=== PATIENT | male | born 1930 ===

== ENCOUNTER 2018-10-24 12:56 | Inpatient (IN) | payer OTHER ==
[2018-10-24 13:42] LABS: Absolute Lymphocytes (CBC) 1.1 K/uL (0.7-4.9); Basophils % 0.3 % (0-1.3); Hematocrit 25.6 % (39.6-49.0); Lymphocytes % 11.5 % (15.3-44.8); MPV 9.2 fL (7.6-11.3); RBC Red Blood Cell Count 2.69 M/uL (4.33-5.43)
[2018-10-24 14:03] LABS: Albumin 3.3 g/dL (3.4-5.0); Bilirubin Direct 0.2 mg/dL (0-0.2); Bilirubin Total 0.4 mg/dL (0.2-1.0); Potassium 3.7 mmol/L (3.5-5.1); Protein, Total 6.9 g/dL (6.4-8.2)
--- NOTE | 2018-10-24 14:39 | ER ---
Nurse's Notes [facility] Name: Tariq Yang Age: 88 yrs Sex: Male : 1930 Arrival Date: 10/24/2018 Time: 13:02 Bed 23 Private MD: Diagnosis: Hematuria Presentation: 10/24 13:03 Presenting complaint: EMS states: Pt c/o of blood in urine, bright red. Pt called Dr. marquis Conway and was advised to come to the ER. VS are stable. Transition of care: patient was not received from another setting of care. Onset of symptoms was October 24, 2018. Risk Assessment: Do you want to hurt yourself or someone else? Patient reports no desire to harm self or others. Initial Sepsis Screen: Does the patient meet any 2 criteria? No. Patient's initial sepsis screen is negative. Does the patient have a suspected source of infection? No. Patient's initial sepsis screen is negative. Care prior to arrival: None. 13:03 Method Of Arrival: EMS: [facility] 13:03 Acuity: ANNE-MARIE 3 ca1 Triage Assessment: 13:10 General: Appears in no apparent distress. comfortable, Behavior is calm, cooperative, ca1 appropriate for age. Pain: Complains of pain in groin Pain currently is 5 out of 10 on a pain scale. 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 - Social history:: Smoking status: Patient/guardian denies using tobacco, the patient reports quitting approximately 4 years ago, Patient/guardian denies using alcohol, street drugs, The patient lives with family. - Ebola Screening: : Patient negative for fever greater than or equal to 101.5 degrees Fahrenheit, and additional compatible Ebola Virus Disease symptoms Patient denies exposure to infectious person Patient denies travel to an Ebola-affected area in the 21 days before illness onset No symptoms or risks identified at this time. - Family history:: not pertinent. Screenin:14 Abuse screen: Denies threats or abuse. Denies injuries from another. Nutritional ca1 screening: No deficits noted. Tuberculosis screening: No symptoms or risk factors identified. Fall Risk IV access (20 points). Ambulatory Aid- Crutches/Cane/Walker (15 pts). Gait- Weak (10 pts.). Total Hatfield Fall Scale indicates High Risk Score (45 or more points). Fall prevention measures have been instituted. Side Rails Up X 2 Frequent Obs/Assessments Occuring Family Present and informed to notify staff if the need to leave the bedside As available patient and family educated on Fall Prevention Program and Strategies. Assessment: 13:14 General: Appears in no apparent distress. comfortable, Behavior is calm, cooperative, ca1 appropriate for age. Pain: Complains of pain in groin Pain currently is 5 out of 10 on a pain scale. Neuro: Level of Consciousness is awake, alert, obeys commands, Oriented to person, place, time, situation. Cardiovascular: Heart tones S1 S2 Capillary refill < 3 seconds Patient's skin is warm and dry. Edema is 2+ to left midcalf, left ankle, left foot, right midcalf, right ankle, right foot and right toes. Respiratory: Airway is patent Respiratory effort is even, unlabored, Respiratory pattern is regular, symmetrical, Breath sounds are clear bilaterally. GI: Abdomen is round non-distended, Bowel sounds present X 4 quads. Abd is soft and non tender X 4 quads. : Reports blood in urine, bright red in color and moderate in amount. EENT: No deficits noted. No signs and/or symptoms were reported regarding the EENT system. Derm: Skin is intact, is healthy with good turgor, Skin is pink, warm \T\ dry. Musculoskeletal: Circulation, motion, and sensation intact. Capillary refill < 3 seconds. 14:10 Reassessment: Patient appears in no apparent distress at this time. Patient and/or ca1 family updated on plan of care and expected duration. Pain level reassessed. Patient is alert, oriented x 3, equal unlabored respirations, skin warm/dry/pink. 15:00 Reassessment: Patient appears in no apparent distress at this time. Patient and/or ca1 family updated on plan of care and expected duration. Pain level reassessed. Patient is alert, oriented x 3, equal unlabored respirations, skin warm/dry/pink. 16:08 Reassessment: Patient appears in no apparent distress at this time. Patient and/or ca1 family updated on plan of care and expected duration. Pain level reassessed. Patient is alert, oriented x 3, equal unlabored respirations, skin warm/dry/pink. 17:27 Reassessment: Patient appears in no apparent distress at this time. Patient and/or ca1 family updated on plan of care and expected duration. Pain level reassessed. Patient is alert, oriented x 3, equal unlabored respirations, skin warm/dry/pink. Attempted to insert a 3-way cath, unsuccessful. Verified by JUANA Peter. Swain Cath inserted. Irrigated until clear. Pt tolerated well. 17:39 Reassessment: Called for report. Nurse will call back. ca1 18:16 Reassessment: Patient appears in no apparent distress at this time. Patient is alert, ca1 oriented x 3, equal unlabored respirations, skin warm/dry/pink. 18:26 Reassessment: Dr. Jacob at bedside. Notified unsuccessful insertion of 3-way cath. ca1 Notified Dr. Jacob that pt's bladder was irrigated until clear and clots evacuated. Vital Signs: 13:10 BP 136 / 72; Pulse 92; Resp 16 S; Temp 98.9(O); Pulse Ox 100% on R/A; Weight 80.29 kg ca1 (R); Height 6 ft. 1 in. (185.42 cm) (R); Pain 5/10; 14:12 BP 129 / 58; Pulse 87; Resp 16 S; Pulse Ox 100% on R/A; ca1 15:00 BP 132 / 85; Pulse 85; Resp 23 S; Pulse Ox 96% on R/A; ca1 16:00 BP 121 / 57; Pulse 92; Resp 17 S; Pulse Ox 97% on R/A; ca1 17:27 BP 123 / 59; Pulse 63; Resp 15; Temp 98.5(O); Pulse Ox 100% on R/A; ca1 18:16 BP 131 / 63; Pulse 97; Resp 14 S; Pulse Ox 96% on R/A; ca1 13:10 Body Mass Index 23.35 (80.29 kg, 185.42 cm) ca1 ED Course: 13:02 Patient arrived in ED. ca1 13:05 Triage completed. ca1 13:07 Jorge Tamayo PA is PHCP. [email or web address] 13:07 Pravin Munson MD is Attending Physician. jm 13:07 Kevin Nance MD is Attending Physician. ma2 13:08 Tamela Ryder RN is Primary Nurse. ca1 13:10 Arm band placed on right wrist. ca1 13:14 Patient has correct armband on for positive identification. Placed in gown. Bed in low ca1 position. Call light in reach. Side rails up X2. wholesale loan processor on. Pulse ox on. NIBP on. Warm blanket given. 13:14 No provider procedures requiring assistance completed. ca1 13:26 Initial lab(s) drawn, by pr, sent to lab. First set of blood cultures drawn by me. lt1 13:28 Inserted saline lock: 20 gauge in right antecubital area, using aseptic technique. lt1 13:49 EKG done, by theater technician. reviewed by Kevin Nance MD. tc 13:58 Second set of blood cultures drawn by me. lt1 13:59 Blood Culture Adult (2) Sent. lt1 14:36 Eddie Conway MD is Hospitalizing Provider. ma2 14:36 Merrill Jacob MD is Hospitalizing Provider. ma2 17:27 Swain cath inserted, using sterile technique, 18 Fr., by pr, balloon inflated, to ca1 gravity drainage, clamped. returned bloody urine. Patient tolerated well. Irrigated with NS. Clots drained. 17:38 Patient admitted, IV remains in place. ca1 Administered Medications: 16:30 Drug: [place] 10 mg-325 mg 1 tabs {Note: RASS - 0.} Route: PO; aj1 17:36 Follow up: Response: No adverse reaction; Pain is decreased; RASS: Alert and Calm (0) ca1 Outcome: 14:37 Decision to Hospitalize by Provider. ma2 18:16 Admitted to Med/surg accompanied by nurse, accompanied by tech, via stretcher, room ca1 231, Report called to MARQUIS Schrader 18:16 Condition: stable 18:16 Instructed on the need for admit. 18:31 Patient left the ED. ca1 Signatures: Vita Doe RN RN aj1 Jorge Tamayo PA PA jmm Callis, Tiffany, social studies teacher EKG Ttc Kevin Nance MD MD ma2 Acob, Cheryl, RN RN ca1 Nuno, Triny lt1 Corrections: (The following items were deleted from the chart) 13:11 13:10 Pain: Denies pain. ca1 ca1 16:08 15:00 Reassessment: Patient appears in no apparent distress at this time. Patient ca1 and/or family updated on plan of care and expected duration. Pain level reassessed. Patient is alert, oriented x 3, equal unlabored respirations, skin warm/dry/pink. 16 ca1 17:29 17:27 Swain cath inserted, using sterile technique, 18 Fr., by pr, balloon inflated, to ca1 gravity drainage, clamped. returned bloody urine. Patient tolerated well. Irrigated with NS. Clots drained. ca1 18:31 17:27 Reassessment: Patient appears in no apparent distress at this time. Patient ca1 and/or family updated on plan of care and expected duration. Pain level reassessed. Patient is alert, oriented x 3, equal unlabored respirations, skin warm/dry/pink. Swain Cath inserted. Irrigated until clear. Pt tolerated well. ca1
--- NOTE | 2018-10-24 14:40 | EDPHYS ---
Physician Documentation [facility] Name: Tariq Yang Age: 88 yrs Sex: Male : 1930 Arrival Date: 10/24/2018 Time: 13:02 Bed 23 Private MD: ED Physician Kevin Nance HPI: 10/24 14:32 This 88 yrs old Unknown Male presents to ER via EMS with complaints of hematuria. ma2 14:32 The patient presents with hematuria. Onset: The symptoms/episode began/occurred ma2 gradually, 1 day(s) ago. Associated signs and symptoms: Pertinent positives: hematuria, Pertinent negatives: nausea and vomiting, blood in stools, constipation, dysuria, shortness of breath, testicular pain, vomiting blood. Severity of pain: At its worst the pain was moderate in the emergency department the pain is unchanged. The patient has experienced similar episodes in the past. sent by EMS, as recommended by dr. conway, patient has hx of prostate ca and here with active hematuria . 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 - Social history:: Smoking status: Patient/guardian denies using tobacco, the patient reports quitting approximately 4 years ago, Patient/guardian denies using alcohol, street drugs, The patient lives with family. - Ebola Screening: : Patient negative for fever greater than or equal to 101.5 degrees Fahrenheit, and additional compatible Ebola Virus Disease symptoms Patient denies exposure to infectious person Patient denies travel to an Ebola-affected area in the 21 days before illness onset No symptoms or risks identified at this time. - Family history:: not pertinent. ROS: 14:32 Constitutional: Negative for fever, chills, and weight loss. ma2 14:32 All other systems are negative. Exam: 14:32 Constitutional: This is a well developed, well nourished patient who is awake, alert, ma2 and in no acute distress. Chest/axilla: Normal chest wall appearance and motion. Nontender with no deformity. No lesions are appreciated. Cardiovascular: Regular rate and rhythm with a normal S1 and S2. No gallops, murmurs, or rubs. Normal PMI, no JVD. No pulse deficits. Respiratory: Lungs have equal breath sounds bilaterally, clear to auscultation and percussion. No rales, rhonchi or wheezes noted. No increased work of breathing, no retractions or nasal flaring. Abdomen/GI: Soft, non-tender, with normal bowel sounds. No distension or tympany. No guarding or rebound. No evidence of tenderness throughout. Skin: Warm, dry with normal turgor. Normal color with no rashes, no lesions, and no evidence of cellulitis. 14:32 Male : Normal genitalia with no discharge or lesions. MS/ Extremity: Pulses equal, ma2 no cyanosis. Neurovascular intact. Full, normal range of motion. Vital Signs: 13:10 BP 136 / 72; Pulse 92; Resp 16 S; Temp 98.9(O); Pulse Ox 100% on R/A; Weight 80.29 kg ca1 (R); Height 6 ft. 1 in. (185.42 cm) (R); Pain 5/10; 14:12 BP 129 / 58; Pulse 87; Resp 16 S; Pulse Ox 100% on R/A; ca1 15:00 BP 132 / 85; Pulse 85; Resp 23 S; Pulse Ox 96% on R/A; ca1 16:00 BP 121 / 57; Pulse 92; Resp 17 S; Pulse Ox 97% on R/A; ca1 17:27 BP 123 / 59; Pulse 63; Resp 15; Temp 98.5(O); Pulse Ox 100% on R/A; ca1 18:16 BP 131 / 63; Pulse 97; Resp 14 S; Pulse Ox 96% on R/A; ca1 13:10 Body Mass Index 23.35 (80.29 kg, 185.42 cm) ca1 MDM: 13:07 Patient medically screened. ma2 14:32 Differential diagnosis: Prostatitis, Ureterolithiasis, urinary tract infection. Data ma2 reviewed: vital signs, nurses notes, old medical records, radiologic studies. Counseling: I had a detailed discussion with the patient and/or guardian regarding: the historical points, exam findings, and any diagnostic results supporting the discharge/admit diagnosis, the presence of at least one elevated blood pressure reading (>120/80) during this emergency department visit, the need for outpatient follow up. Response to treatment: the patient's symptoms have mildly improved after treatment. ED course: called dr. conway via kiln head house operator, no answers, i called and discussed with dr. Jacob, as per EMS report dr. Conway recommends admission, vs wnl, hb is 9 and patient has active hematuria . 10/24 13:08 Order name: Basic Metabolic Panel; Complete Time: 14:29 pr2 10/24 13:08 Order name: CBC with Diff pr2 10/24 13:08 Order name: Creatinine for Radiology; Complete Time: 14:29 pr2 10/24 13:08 Order name: Hepatic Function; Complete Time: 14:29 pr2 10/24 13:08 Order name: Lipase; Complete Time: 14:29 pr2 10/24 13:24 Order name: Blood Culture Adult (2) ph 10/24 13:08 Order name: IV Saline Lock; Complete Time: 13:29 pr2 10/24 13:08 Order name: Labs collected and sent; Complete Time: 13:29 pr2 10/24 13:48 Order name: CBC with Automated Diff EDOK 10/24 15:54 Order name: Urinalysis W/Microscopic [facility]OK 10/24 16:29 Order name: Urine Culture [facility] 10/24 17:47 Order name: Diet Heart Healthy; Complete Time: 17:48 ca1 10/24 15:59 Order name: Swain-Hematuria: irregation with ns; Complete Time: 17:35 ma2 Administered Medications: 16:30 Drug: [place] 10 mg-325 mg 1 tabs {Note: RASS - 0.} Route: PO; aj1 17:36 Follow up: Response: No adverse reaction; Pain is decreased; RASS: Alert and Calm (0) ca1 Disposition: 10/24/18 14:37 Hospitalization ordered by Merrill Jacob for Inpatient Admission. Preliminary diagnosis is Hematuria. - Bed requested for Telemetry/MedSurg (Inpatient). - Status is Inpatient Admission. ca1 - Condition is Stable. - Problem is new. - Symptoms are unchanged. UTI on Admission? No Signatures: Dispatcher [employer] EDOK Tram García Angela, RN RN aj1 Kevin Nance MD MD ma2 Acob, Tamela, RN RN ca1 Corrections: (The following items were deleted from the chart) 15:10 13:08 Urine Dipstick-Ancillary ordered. ma2 ca1 15:57 15:05 UA MICROSCOPIC+U.LAB.BRZ ordered. EDMS EDMS 16:16 14:37 Hospitalization Ordered by Merrill Jacob MD for Inpatient Admission. Preliminary bd diagnosis is Hematuria. Bed requested for Telemetry/MedSurg (Inpatient). Status is Inpatient Admission. Condition is Stable. Problem is new. Symptoms are unchanged. UTI on Admission? No. ma2 18:31 16:16 10/24/2018 14:37 Hospitalization Ordered by Merrill Jacob MD for Inpatient ca1 Admission. Preliminary diagnosis is Hematuria. Bed requested for Telemetry/MedSurg (Inpatient). Status is Inpatient Admission. Condition is Stable. Problem is new. Symptoms are unchanged. UTI on Admission? No. bd
[2018-10-24 15:55] LABS: Urine Appearance TURBID; Urine Bilirubin NEGATIVE (NEG); Urine Blood 3+ (NEG); Urine Color RED; Urine Glucose NEGATIVE (NEG); Urine Protein 3+ (NEG); Urine Specific Gravity >=1.030 (1.005-1.030)
[2018-10-24 16:23] LABS: Urine Bacteria LOADED /HPF (NONE SEEN); Urine Culture Reflex Order REFLEXED; Urine RBC TNTC /HPF (NONE SEEN)
[2018-10-24] MEDS ORDERED: HYDROCODONE/APAP 10/325 TAB ONE (16:26)
--- NOTE | 2018-10-24 18:31 | EKG ---
Test Date: 2018-10-24 Test Time: 13:37:49 Inventory Control/Shipping Receiving: HOWARD MEASUREMENT RESULTS: Intervals: Rate: 93 IA: QRSD: 130 QT: 422 QTc: 524 [place]: P: IA: QRS: -64 T: 73 INTERPRETIVE STATEMENTS: Sinus rhythm with AV dissociation and Wide QRS rhythm with frequent premature ventricular complexes Right bundle branch block Left anterior fascicular block Bifascicular block Abnormal ECG No previous ECG available for comparison Electronically Signed On 10-24-18 18:29:21 CDT by Kenny Woodall
--- NOTE | 2018-10-24 18:44 | P.HP ---
Certification for Inpatient Patient admitted to: Inpatient Practitioner: I am a practitioner with admitting privileges, knowledge of patient current condition, hospital course, and medical plan of care. Services: Services provided to patient in accordance with Admission requirements found in Title 42 Section 412.3 of the Code of Federal Regulations Patient History Date of Service: 10/24/18 Reason for admission: Hematuria History of Present Illness: This is a 88-year-old male with history of neuropathy and prostate cancer status post radiation therapy 1 year ago admitted for hematuria. Per patient, he has been experiencing hematuria this past 1 week and has been progressively worsening. He has been seeing Dr. Conway and called his office when he started experiencing this. He was told to come to the emergency room to get further management and treatment. Patient denies any chest pain, shortness of breath, abdominal pain, vision changes, headache, lightheadedness, syncope or other GI complaints. In the ER, patient was hemodynamically stable with blood pressure 136/72, heart rate of 92. His hemoglobin was low at 9.3, sodium was elevated at 146. Otherwise his labs were unremarkable. In the ER, an attempt was made to put a [address] Swain but they were unsuccessful. Therefore the regular Swain catheter was placed and bladder irrigation was done in the ER until no clots were noted. At the time of my exam, he was alert oriented x3, in no acute distress, hemodynamically stable. Allergies Penicillins Allergy (Verified 10/24/18 17:33) Hives/Rash Home medications list reviewed: Yes - Past Medical/Surgical History -: Prostate cancer, radiation therapy Review of Systems 10-point ROS is otherwise unremarkable Physical Examination - Physical Exam General: Alert, In no apparent distress, Cachectic, Other (Elderly) HEENT: Atraumatic, PERRLA, Mucous membr. moist/pink, EOMI, Sclerae nonicteric Neck: Supple, 2+ carotid pulse no bruit, No LAD, Without JVD or thyroid abnormality Respiratory: Clear to auscultation bilaterally, Normal air movement Cardiovascular: Regular rate/rhythm, Normal S1 S2 Gastrointestinal: Normal bowel sounds, No tenderness Musculoskeletal: No tenderness Integumentary: No rashes Neurological: Normal gait, Normal speech, Normal strength at 5/5 x4 extr, Normal tone, Normal affect Lymphatics: No axilla or inguinal lymphadenopathy - Studies Laboratory Data (last 24 hrs) 10/24/18 13:26: Creatinine 1.67 H 10/24/18 13:26: WBC 9.3, Hgb 8.9 L, Hct 25.6 L, Plt Count 183 10/24/18 13:26: Sodium 146 H, Potassium 3.7, BUN 30 H, Creatinine 1.64 H, Glucose 99, Total Bilirubin 0.4, AST 13 L, ALT 11 L, Alkaline Phosphatase 86, Lipase 63 L Assessment and Plan - Problems (Diagnosis) (1) Hematuria Current Visit: Yes Status: Acute Qualifiers: Hematuria type: unspecified type Qualified Code(s): R31.9 - Hematuria, unspecified (2) History of prostate cancer Current Visit: Yes Status: Chronic (3) History of radiation therapy Current Visit: Yes Status: Chronic (4) Neuropathy Current Visit: Yes Status: Acute - Plan Admit to floor with tele -Dr. Conway, urology consulted. Case discussed with Dr. Conway. Awaiting further recommendations -continue bladder irrigation as needed -monitor H&H via labs -monitor vital sign DVT prophylaxis: None GI prophylaxis: None Diet: Regular, NPO past med Disposition: Admit to floor with tele, pending symptomatic improvement and urology evaluation. - Advance Directives Does patient have a Living Will: No Does patient have a Durable POA for Healthcare: No Time Spent Managing Pts Care (In Minutes): 55
[2018-10-24 19:42] VITALS: BMI 23.3
[2018-10-24 20:14] LABS: Absolute Lymphocytes (CBC) 1.3 K/uL (0.7-4.9); Basophils % 0.6 % (0-1.3); Hematocrit 24.8 % (39.6-49.0); Lymphocytes % 14.7 % (15.3-44.8); MPV 9.1 fL (7.6-11.3); RBC Red Blood Cell Count 2.56 M/uL (4.33-5.43)
[2018-10-24] MEDS: NA CHLORIDE 0.9% 1,000 ML IV SCH (20:50)
[2018-10-24] MEDS: HYDROCODONE/APAP 10/325 TAB PO PRN (20:50)
[2018-10-25] MEDS: HYDROCODONE/APAP 10/325 TAB PO PRN (04:20)
[2018-10-25] MEDS: NA CHLORIDE 0.9% 1,000 ML IV SCH ×3 (05:34→20:54)
[2018-10-25 05:43] LABS: Absolute Lymphocytes (CBC) 1.9 K/uL (0.7-4.9); Basophils % 0.4 % (0-1.3); Hematocrit 22.8 % (39.6-49.0); Lymphocytes % 21.1 % (15.3-44.8); RBC Red Blood Cell Count 2.41 M/uL (4.33-5.43)
[2018-10-25 06:13] LABS: Bilirubin Total 0.6 mg/dL (0.2-1.0); Phosphorus 2.2 mg/dL (2.5-4.9); Potassium 3.9 mmol/L (3.5-5.1); Protein, Total 5.9 g/dL (6.4-8.2)
[2018-10-25 06:14] LABS: Magnesium 1.4 mg/dL (1.8-2.4)
[2018-10-25] MEDS ORDERED: Magnesium Sulfate 2gm IVPB 2 G/50 ML BAG IV ONE (08:00)
[2018-10-25] MEDS ORDERED: POTASSIUM PHOS IN 0.9 % NACL 15 MMOL/250 ML BAG IV ONE (09:00)
[2018-10-25] MEDS ORDERED: NA CHLORIDE 0.9% 500 ML ONE (11:09)
[2018-10-25] MEDS ORDERED: MORPHINE 2 MG/ML SYR IV ONE (11:33)
[2018-10-25] MEDS ORDERED: MORPHINE 2 MG/ML SYR ONE (11:40)
[2018-10-25] MEDS ORDERED: PROPOFOL 200 MG/20 ML VIAL IV ONE (13:11)
[2018-10-25] MEDS ORDERED: LIDOCAINE 1% MPF 5 ML VIAL ONE (13:11)
[2018-10-25] MEDS ORDERED: FENTANYL CITR 100 MCG/2 ML ONE (13:11)
[2018-10-25] MEDS ORDERED: GENTAMICIN 100 MG/100 ML BAG 100 ML IV ONE (13:22)
[2018-10-25] MEDS ORDERED: Ringers Lactate 1,000 ML IV ONE (13:27)
--- NOTE | 2018-10-25 13:32 | P.PN ---
Subjective Date of Service: 10/25/18 Chief Complaint: Hematuria Patient seen and examined at bedside. No family at bedside. Chart reviewed and case discussed with nursing staff. Continues to have hematuria Denies any chest pain, shortness of breath, headache, dizziness, vision changes or speech changes. Review of Systems 10-point ROS is otherwise unremarkable Physical Examination - Vital Signs Temperature: 97.3 F Blood Pressure: 137/70 Pulse: 109 Respirations: 18 Pulse Ox (%): 94 - Physical Exam General: Alert, In no apparent distress, Oriented x3 HEENT: Atraumatic, PERRLA, EOMI Neck: Supple, JVD not distended Respiratory: Clear to auscultation bilaterally, Normal air movement Cardiovascular: Regular rate/rhythm, Normal S1 S2 Gastrointestinal: Normal bowel sounds, No tenderness Musculoskeletal: No tenderness Integumentary: No rashes Neurological: Normal speech, Normal tone, Normal affect Lymphatics: No axilla or inguinal lymphadenopathy - Studies Laboratory Data (last 24 hrs) 10/24/18 13:26: Creatinine 1.67 H 10/24/18 13:26: WBC 9.3, Hgb 8.9 L, Hct 25.6 L, Plt Count 183 10/24/18 13:26: Sodium 146 H, Potassium 3.7, BUN 30 H, Creatinine 1.64 H, Glucose 99, Total Bilirubin 0.4, AST 13 L, ALT 11 L, Alkaline Phosphatase 86, Lipase 63 L Assessment And Plan - Current Problems (Diagnosis) (1) Hematuria Current Visit: Yes Status: Acute Qualifiers: Hematuria type: unspecified type Qualified Code(s): R31.9 - Hematuria, unspecified (2) History of prostate cancer Current Visit: Yes Status: Chronic (3) History of radiation therapy Current Visit: Yes Status: Chronic (4) Neuropathy Current Visit: Yes Status: Acute - Plan -Dr. Conway, urology consulted. Case discussed with Dr. Conway. Recommendations appreciated. Patient pending cystoscopy, clot evacuation and through Swain catheter placement procedure today. -continue bladder irrigation as needed -monitor H&H via labs - Transfuse 1 unit PRBC at this time. -monitor vital sign DVT prophylaxis: None GI prophylaxis: None Diet: Regular, NPO Disposition: pending symptomatic improvement and urology recommendations.
[2018-10-25] MEDS ORDERED: NS 0.9% VIAL 10 ML ONE (14:19)
[2018-10-25] MEDS ORDERED: Phenylephrine HCl 10 MG/ML 1 ML VIAL ONE (14:19)
[2018-10-25] MEDS: FENTANYL CITR 100 MCG/2 ML ONE ×2 (15:00→15:15)
[2018-10-25] MEDS: CEFTRIAXONE/SWI 1gm 1 GM/10 ML SYR IVP SCH (16:07)
--- NOTE | 2018-10-25 16:50 | CON ---
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 Due to his radiation, he has had complete biopsies before that wer e all negative. He has had hyperbarics done before. However suddenly, he was at home and started bl eeding and called my office. He was sent to the emergency room. He was found to be anemic and was a dmitted overnight. They tried to place a 3-way Swain catheter, but had some difficulty, so they plac ed a regular catheter. This drained pretty grossly blood, tried to irrigate home. There was some re sistance and not able to aspirate any fluid from the catheter. It may be in the wrong position. So, he is going to need to go to OR for cysto, clot evacuation, fulguration, and Swain placement. He drummond s been n.p.o. overnight. Allergies: PENICILLIN, CAUSES HIVES AND RASH. Home Medications: Reviewed. Past Medical History: Prostate cancer, radiation and radiation cystitis. Review of Systems: Ten-point review of systems is otherwise unremarkable. Physical Examination: Vital Signs: Patient is afebrile, stable. General: Alert, slightly cachectic, older gentleman. HEENT: Atraumatic and normocephalic. Neck: Supple. Respiratory: Clear. Cardiovascular: S1, S2. Abdomen: Soft, nontender. Genitourinary: Both testicles are descended. Phallus circumcised. Swain catheter in place. Laboratory Data: Labs reviewed. Creatinine 1.67. CBC; white count 9.3, H and H 8.9 and 25, platele t count 183. His hemoglobin came down to 7 today. He is getting 1 unit transfused now. Electrolyte s reviewed with creatinine 1.6. Diagnoses: 1.Gross hematuria, difficult Swain catheter placement. 2.History of prostate cancer. 3.History of radiation and radiation cystitis. 4.History of neuropathy. Plan: Plan is to take patient to operating room for cysto, clot evacuation, fulguration, and Swain p lacement. He will receive 1 unit of blood. Patient was given all general information, alternatives, and risks and wishes to proceed. CHEN/BRIAN Voice ID: [id number] Report ID: [id number]
[2018-10-25] MEDS ORDERED: HYDROCODONE/APAP 10/325 TAB PO SCH (17:00)
[2018-10-25 17:40] LABS: Hematocrit 24.4 % (39.6-49.0)
[2018-10-25] MEDS: HYDROCODONE/APAP 10/325 TAB PO SCH ×2 (18:15→23:20)
[2018-10-25] MEDS: LIOTHYRONINE SOD 5 MCG TAB PO SCH (20:56)
[2018-10-25] MEDS: GABAPENTIN 300 MG CAP PO SCH (20:56)
[2018-10-26] MEDS: NA CHLORIDE 0.9% 1,000 ML IV SCH ×3 (00:49→17:45)
[2018-10-26] MEDS ORDERED: NACL 0.9% IRR SOLN 4,000 ML IRR ONE ×2 (00:55→04:57)
[2018-10-26] MEDS: HYDROCODONE/APAP 10/325 TAB PO SCH ×3 (05:10→17:44)
[2018-10-26] MEDS: LEVOTHYROXINE SOD 0.112 MG TAB PO SCH (05:10)
[2018-10-26 05:53] LABS: Absolute Lymphocytes (CBC) 1.9 K/uL (0.7-4.9); Basophils % 0.3 % (0-1.3); Hematocrit 22.9 % (39.6-49.0); MPV 9.5 fL (7.6-11.3); RBC Red Blood Cell Count 2.41 M/uL (4.33-5.43)
[2018-10-26 06:18] LABS: Phosphorus 3.2 mg/dL (2.5-4.9); Potassium 4.7 mmol/L (3.5-5.1)
[2018-10-26] MEDS ORDERED: [UNRECOGNIZED DRUG - OTHER] PO SCH (09:00)
[2018-10-26] MEDS: CEFTRIAXONE/SWI 1gm 1 GM/10 ML SYR IVP SCH (09:26)
[2018-10-26] MEDS: LIOTHYRONINE SOD 5 MCG TAB PO SCH ×2 (09:27→20:29)
[2018-10-26] MEDS: METOPROLOL XL 25 MG TAB PO SCH (09:27)
[2018-10-26] MEDS: FUROSEMIDE 40 MG TABLET PO SCH (09:28)
[2018-10-26] MEDS: LISINOPRIL 5 MG TAB PO SCH (09:28)
[2018-10-26] MEDS: GABAPENTIN 300 MG CAP PO SCH ×3 (09:28→20:29)
[2018-10-26] MEDS: MAXZIDE (HCTZ 25/TRIAMTERENE 37.5MG) TAB PO SCH (09:28)
[2018-10-26] MEDS ORDERED: NACL 0.9% IRR SOLN 2,000 ML IRR SCH (12:00)
[2018-10-26 12:54] LABS: Absolute Lymphocytes (CBC) 1.6 K/uL (0.7-4.9); Basophils % 0.6 % (0-1.3); Hematocrit 22.5 % (39.6-49.0); Lymphocytes % 14.2 % (15.3-44.8); RBC Red Blood Cell Count 2.39 M/uL (4.33-5.43)
--- NOTE | 2018-10-26 15:11 | P.PN ---
Subjective Date of Service: 10/26/18 Chief Complaint: Hematuria Subjective: Improving Patient seen and examined at bedside. No family at bedside. Chart reviewed and case discussed with nursing staff. Continues to have hematuria bu tno complaints this am. Denies any chest pain, shortness of breath, headache, dizziness, vision changes or speech changes. Review of Systems 10-point ROS is otherwise unremarkable Physical Examination - Vital Signs Temperature: 98.1 F Blood Pressure: 126/61 Pulse: 93 Respirations: 18 Pulse Ox (%): 96 - Physical Exam General: Alert, In no apparent distress HEENT: Atraumatic, PERRLA, EOMI Neck: Supple, JVD not distended Respiratory: Clear to auscultation bilaterally, Normal air movement Cardiovascular: Regular rate/rhythm, Normal S1 S2 Gastrointestinal: Normal bowel sounds, No tenderness Musculoskeletal: No tenderness Integumentary: No rashes Neurological: Normal speech, Normal tone, Normal affect Lymphatics: No axilla or inguinal lymphadenopathy Assessment And Plan - Current Problems (Diagnosis) (1) Hematuria Current Visit: Yes Status: Acute Qualifiers: Hematuria type: unspecified type Qualified Code(s): R31.9 - Hematuria, unspecified (2) History of prostate cancer Current Visit: Yes Status: Chronic (3) History of radiation therapy Current Visit: Yes Status: Chronic (4) Neuropathy Current Visit: Yes Status: Acute - Plan -Dr. Conway, urology consulted. Case discussed with Dr. Conway. Recommendations appreciated. Patient s/p cystoscopy, clot evacuation and 3-way Swain catheter placement procedure today. -continue bladder irrigation as needed -monitor H&H via labs - s/p 1 unit PRCs so far. H&H slowly decreasing. latest Hgb 7.6 (form 7.8). Will recheck at 7 pm. If less than 7, will transfuse another unit PRBCs. -monitor vital signs DVT prophylaxis: None GI prophylaxis: None Diet: Regular Disposition: pending symptomatic improvement and urology recommendations.
--- NOTE | 2018-10-26 18:03 | PN ---
Subjective: Mr. Yang is doing well today. Urine is clearing nicely. We are going to go ahead and t urn off the CBI and see how it looks after half hour to an hour. He may need his catheter removed. His urine culture was negative. His path specimen is still pending, probably pending until next week or so. We will try to get him home for the weekend. CHEN/BRIAN Voice ID: [id number] Report ID: [id number]
[2018-10-26 20:45] LABS: Hematocrit 21.8 % (39.6-49.0)
[2018-10-27] MEDS: HYDROCODONE/APAP 10/325 TAB PO SCH ×6 (00:35→23:24)
[2018-10-27] MEDS: NA CHLORIDE 0.9% 1,000 ML IV SCH ×3 (05:03→16:58)
[2018-10-27] MEDS: LEVOTHYROXINE SOD 0.112 MG TAB PO SCH (05:23)
[2018-10-27 07:37] LABS: Absolute Lymphocytes (CBC) 1.4 K/uL (0.7-4.9); Basophils % 0.6 % (0-1.3); Hematocrit 20.8 % (39.6-49.0); Lymphocytes % 15.7 % (15.3-44.8); MPV 9.1 fL (7.6-11.3); RBC Red Blood Cell Count 2.21 M/uL (4.33-5.43)
--- NOTE | 2018-10-27 07:37 | EKG ---
Test Date: 2018-10-27 Test Time: 02:26:24 Pipe Organ Installer: RT-O MEASUREMENT RESULTS: Intervals: Rate: 73 [place]: QRSD: 98 QT: 446 QTc: 491 [place]: P: [place]: QRS: -57 T: -10 INTERPRETIVE STATEMENTS: Accelerated Junctional rhythm with frequent and consecutive premature ventricular complexes and fusion complexes Left anterior fascicular block Nonspecific ST abnormality Prolonged QT Abnormal ECG Compared to ECG 10/24/2018 13:37:49 Accelerated junctional rhythm now present Fusion complex(es) now present ST (T wave) deviation now present Prolonged QT interval now present Sinus rhythm no longer present Uncertain supraventricular rhythm no longer present AV dissociation no longer present Right bundle-branch block no longer present Bifascicular block no longer present Electronically Signed On 10-27-18 07:36:24 CDT by Kenny Woodall
[2018-10-27 07:56] LABS: Albumin 2.3 g/dL (3.4-5.0); Bilirubin Total 0.3 mg/dL (0.2-1.0); Magnesium 1.7 mg/dL (1.8-2.4); Potassium 4.2 mmol/L (3.5-5.1); Protein, Total 5.1 g/dL (6.4-8.2)
[2018-10-27] MEDS: CEFTRIAXONE/SWI 1gm 1 GM/10 ML SYR IVP SCH (09:51)
[2018-10-27] MEDS: METOPROLOL XL 25 MG TAB PO SCH (09:52)
[2018-10-27] MEDS: MAXZIDE (HCTZ 25/TRIAMTERENE 37.5MG) TAB PO SCH (09:52)
[2018-10-27] MEDS: LIOTHYRONINE SOD 5 MCG TAB PO SCH ×2 (09:52→21:16)
[2018-10-27] MEDS: GABAPENTIN 300 MG CAP PO SCH ×3 (09:52→21:16)
[2018-10-27] MEDS: LISINOPRIL 5 MG TAB PO SCH (09:53)
[2018-10-27] MEDS: FUROSEMIDE 40 MG TABLET PO SCH (09:53)
--- NOTE | 2018-10-27 10:10 | RAD REPORT ---
EXAM DESCRIPTION: CT - Abdomen Pelvis W Contrast - 10/27/2018 9:18 am CLINICAL HISTORY: Abdominal pain with nausea. COMPARISON: none. TECHNIQUE: Computed axial tomography of the abdomen pelvis was obtained. 100 cc Isovue-300 was admin istered intravenously. Oral contrast was not requested which limits evaluation of bowel. All CT scans are performed using dose optimization technique as appropriate and may include automated exposure control or mA/KV adjustment according to patient size. FINDINGS: Small pleural effusions The liver, spleen, pancreas and adrenals appear unremarkable. Right kidney unremarkable. Mild left hydronephrosis and mild dilatation of the left ureter to the sandro dder. Left renal cortical thinning A Swain catheter is present within the bladder. An ill-defined mass is present within the anterior le ft aspect of the bladder. Soft tissue measuring approximately 4 centimeter extends anteriorly and to the left of the bladder containing several air bubbles. Small amount of surrounding fluid is seen. Th e mass abuts the proximal sigmoid colon. The mass likely obstructs the left UVJ resulting in mild lef t hydronephrosis 1 centimeter lymph node along the left crude unit operator chain Diverticulosis without evidence of diverticulitis. There is no evidence of diverticulitis. IMPRESSION: Exophytic bladder mass which probably extends through the wall. 4 centimeter soft tissue structure containing a few air bubbles lies adjacent to the anterior left aspect of the bladder. Sma ll amount of surrounding fluid is seen.
--- NOTE | 2018-10-27 10:40 | PN ---
Today, urine is still slightly hematuric, we will increase her CBI. 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 I also ordered a CAT scan with contrast showing a solid tumor mass, left anterior bladder, was seen to be extending to the sigmoid or from the sigmoid to the bladder, presence of obturator nodes. Primary is bladder vs bowel. The patient will need GI evaluation and oncology evaluation. He is not a good candidate for radical cystectomy and sigmoid resection due to his age and performance status. CHEN/BRIAN Voice ID: [id number] Report ID: [id number] LEA
[2018-10-27] MEDS: HYDROCODONE/APAP 10/325 TAB PO PRN (10:41)
--- NOTE | 2018-10-27 12:39 | P.PN ---
Subjective Date of Service: 10/27/18 Chief Complaint: Hematuria Patient seen and examined at bedside. No family at bedside. Chart reviewed and case discussed with nursing staff. Continues to have hematuria but no complaints this am. Denies any chest pain, shortness of breath, headache, dizziness, vision changes or speech changes. Physical Examination - Vital Signs Temperature: 98.5 F Blood Pressure: 131/60 Pulse: 75 Respirations: 18 Pulse Ox (%): 97 - Physical Exam General: Alert, In no apparent distress HEENT: Atraumatic, PERRLA, EOMI Neck: Supple, JVD not distended Respiratory: Clear to auscultation bilaterally, Normal air movement Cardiovascular: Regular rate/rhythm, Normal S1 S2 Gastrointestinal: Normal bowel sounds, No tenderness Musculoskeletal: No tenderness Integumentary: No rashes Neurological: Normal speech, Normal tone, Normal affect Lymphatics: No axilla or inguinal lymphadenopathy - Studies Microbiology Data (last 24 hrs): 10/24/18 15:08 Clean Catch Urine [place] Count - Final >100,000 CFU/ML. 10/24/18 15:08 Clean Catch Urine - Final MIXED HILLARY. Assessment And Plan - Current Problems (Diagnosis) (1) Hematuria Current Visit: Yes Status: Acute Qualifiers: Hematuria type: unspecified type Qualified Code(s): R31.9 - Hematuria, unspecified (2) History of prostate cancer Current Visit: Yes Status: Chronic (3) History of radiation therapy Current Visit: Yes Status: Chronic (4) Neuropathy Current Visit: Yes Status: Acute - Plan -Dr. Conway, urology consulted. Case discussed with Dr. Conway. Recommendations appreciated. Patient s/p cystoscopy, clot evacuation and 3-way Swain catheter placement procedure. -abdominal CT with exophytic bladder mass which probably extends through the wall. 4 centimeter soft tissue structure containing a few air bubbles lies adjacent to the anterior left aspect of the bladder. Small amount of surrounding fluid is seen. Initial biopsy readings possible with aggressive tumor. Unsure of locations last etiology. Patient will likely need GI and oncology. Biopsy results has been sent to [place] by Dr. Conway. Patient will likely need follow up as an outpatient with physicians out in [place] regarding further care. Patient is a pretty poor surgical or chemotherapy candidate at this time. -continue bladder irrigation as needed -monitor H&H via labs - s/p 1 unit PRCs so far. H&H slowly decreasing. latest Hgb 7.6 (form 7.8). Will recheck at 7 pm. If less than 7, will transfuse another unit PRBCs. -monitor vital signs DVT prophylaxis: None GI prophylaxis: None Diet: Regular Disposition: pending symptomatic improvement and urology recommendations. Anticipate discharge home in the next 24-48 hr, pending clinical improvement. He will likely need outpatient GI and oncology follow up along with a colorectal specialist? Discharge Plan: Home Plan to discharge in: 24 Hours
--- NOTE | 2018-10-27 17:30 | CON ---
Date of Consultation: 10/27/2018 Reason For Consultation: Atrial fibrillation. History Of Present Illness: Mr. Yang is an 88-year-old male, who is [facility] except for severe neuropathy. He takes verapamil, but he does not know why he takes it. He came in with hematuria and had a transurethral resection of a bladder tumor. He continues t o have some hematuria, has no cardiac complaints. Denies chest pain, shortness of breath, PND, ortho pnea, pedal edema, palpitations, or syncope, but he was noted to be in atrial fibrillation. Last hem oglobin was 7.6. Creatinine is 1.36. Past Medical History: As stated above. Allergies: PENICILLIN. Review of Systems: Negative. Social History: Negative. Family History: Noncontributory. Medications: At home, verapamil. Physical Examination: General: Mr. Yang is pleasant, no acute distress. No specific complaint. Vital Signs: Stable. He is in atrial fibrillation at a rate of 80. Afebrile. HEENT: Negative. Neck: Supple without bruit, lymphadenopathy, JVD, or thyromegaly. Chest: Clear to auscultation and percussion. Cardiac: Revealed atrial fibrillation. No gallops or rubs. Abdomen: Benign. Extremities: Reveal no clubbing, cyanosis, or edema. Diagnostic Data: As stated earlier. Impression And Plan: New-onset atrial fibrillation in a patient, who is 88, hemoglobin of 7.6, creat inine 1.36. Continues to have hematuria. I think we need to treat him with either beta blockers or calcium blockers or digoxin on an as-needed basis. Maybe put him back on the verapamil as an outpati ent. He is not a candidate for anticoagulation because of his anemia and continuous bleeding. Maybe on baby aspirin whenever he is ready to go home. He may need some blood transfusions. I will leave that up to Dr. Jacob and Dr. Conway. I will continue to follow him. ADRIAN/BRIAN Voice ID: [id number] Report ID: [id number]
[2018-10-27] MEDS ORDERED: MAGNESIUM SULFATE 1 gm IVPB 1 GM/100 ML BAG IV ONE (20:07)
[2018-10-27 23:53] LABS: Absolute Lymphocytes (CBC) 1.7 K/uL (0.7-4.9); Basophils % 0.4 % (0-1.3); Hematocrit 23.6 % (39.6-49.0); MPV 9.5 fL (7.6-11.3); RBC Red Blood Cell Count 2.47 M/uL (4.33-5.43)
[2018-10-28] MEDS: NA CHLORIDE 0.9% 1,000 ML IV SCH ×2 (03:18→13:18)
[2018-10-28] MEDS: LEVOTHYROXINE SOD 0.112 MG TAB PO SCH (05:43)
[2018-10-28] MEDS: HYDROCODONE/APAP 10/325 TAB PO SCH ×2 (05:43→11:59)
[2018-10-28 07:01] LABS: Magnesium 1.9 mg/dL (1.8-2.4); Potassium 4.6 mmol/L (3.5-5.1)
[2018-10-28 07:03] LABS: Absolute Lymphocytes (CBC) 1.3 K/uL (0.7-4.9); Basophils % 0.3 % (0-1.3); Hematocrit 22.4 % (39.6-49.0); Lymphocytes % 14.4 % (15.3-44.8); MPV 9.5 fL (7.6-11.3); RBC Red Blood Cell Count 2.34 M/uL (4.33-5.43)
[2018-10-28] MEDS: METOPROLOL XL 25 MG TAB PO SCH (08:42)
[2018-10-28] MEDS: FUROSEMIDE 40 MG TABLET PO SCH (08:46)
[2018-10-28] MEDS: GABAPENTIN 300 MG CAP PO SCH ×2 (08:47→14:20)
[2018-10-28] MEDS: LIOTHYRONINE SOD 5 MCG TAB PO SCH (08:47)
[2018-10-28] MEDS: LISINOPRIL 5 MG TAB PO SCH (08:47)
[2018-10-28] MEDS: MAXZIDE (HCTZ 25/TRIAMTERENE 37.5MG) TAB PO SCH (08:47)
[2018-10-28] MEDS: CEFTRIAXONE/SWI 1gm 1 GM/10 ML SYR IVP SCH (08:48)
[2018-10-28 11:18] VITALS: O2SAT 95
--- NOTE | 2018-10-28 15:04 | PN ---
Subjective: Patient is doing well. His urine is clear. His H and H are stable. Last H and H was 7 .6 and 22.4. I's and O's are good. Vital signs were stable. Plan is to remove the Swain catheter. Send the patient home today. No antibiotics or pain medications necessary. He is going to follow u p with me 1-2 weeks for the pathology results. We will discuss that if this is cancer, he has 3 opti ons, radical cholecystectomy, sigmoid resection with ileal conduit formation, primary anastomosis of the colon versus chemoradiation versus watchful waiting. He is leaning towards watchful waiting righ t now, but pending the pathology results. Thank you very much. CHEN/BRIAN Voice ID: [id number] Report ID: [id number]
--- NOTE | 2018-10-28 16:01 | P.DS ---
Admission Date: 10/24/18 Discharge Date: 10/28/18 Disposition: ROUTINE DISCHARGE Discharge Condition: FAIR Reason for Admission: Hematuria - Problems (1) Hematuria Current Visit: Yes Status: Acute Qualifiers: Hematuria type: unspecified type Qualified Code(s): R31.9 - Hematuria, unspecified (2) History of prostate cancer Current Visit: Yes Status: Chronic (3) History of radiation therapy Current Visit: Yes Status: Chronic (4) Neuropathy Current Visit: Yes Status: Acute Brief History of Present Illness: This is a 88-year-old male with history of neuropathy and prostate cancer status post radiation therapy 1 year ago admitted for hematuria. Per patient, he has been experiencing hematuria this past 1 week and has been progressively worsening. He has been seeing Dr. Conway and called his office when he started experiencing this. He was told to come to the emergency room to get further management and treatment. Patient denies any chest pain, shortness of breath, abdominal pain, vision changes, headache, lightheadedness, syncope or other GI complaints. In the ER, patient was hemodynamically stable with blood pressure 136/72, heart rate of 92. His hemoglobin was low at 9.3, sodium was elevated at 146. Otherwise his labs were unremarkable. In the ER, an attempt was made to put a [address] way Swain but they were unsuccessful. Therefore the regular Swain catheter was placed and bladder irrigation was done in the ER until no clots were noted. At the time of my exam, he was alert oriented x3, in no acute distress, hemodynamically stable. Hospital Course: Patient was admitted for hematuria. Dr. Conway, urology consulted. Case discussed with Dr. Conway. Recommendations appreciated. Patient underwent cystoscopy, clot evacuation and 3-way Swain catheter placement procedure. An abdominal CT was done, was with exophytic bladder mass which probably extends through the wall. 4 centimeter soft tissue structure containing a few air bubbles lies adjacent to the anterior left aspect of the bladder. Small amount of surrounding fluid is seen. Initial biopsy readings possible with aggressive tumor. Unsure of location/etiology. Patient will likely need GI and oncology. Biopsy results has been sent to [place] by Dr. Conway. Patient will likely need follow up as an outpatient with physicians out in [place] regarding further care. Patient is a pretty poor surgical or chemotherapy candidate at this time. He was provided with bladder irrigation as needed. He was provided with blood is needed, he received 1 unit PRBCs. His hemoglobin remained stable , and he did not require any further blood transfusions. He otherwise remained finally stable. He was then cleared for discharge by urology once Swain was discontinued. He will follow up with Dr. bertrand to discuss biopsy results of further management. If it is an aggressive tumor, he will be set up with Oncology as well as other physicians that he may need to just colorectal etc. Prior to discharge, patient is alert oriented x3, in no acute distress and hemodynamically stable. His diagnoses/treatment plan was explained to him, all questions were answered and verbalized understanding. He was then discharged home in a safe and stable manner. He will follow up with urology in 1 week. Vital Signs/Physical Exam: Temp Pulse Resp BP Pulse Ox 97.6 F 98 H 17 123/64 97 10/28/18 08:00 10/28/18 08:47 10/28/18 08:00 10/28/18 08:47 10/28/18 08:00 General: Alert, In no apparent distress, Oriented x3 HEENT: Atraumatic, PERRLA, EOMI Neck: Supple, JVD not distended Respiratory: Clear to auscultation bilaterally, Normal air movement Cardiovascular: Regular rate/rhythm, Normal S1 S2 Gastrointestinal: Normal bowel sounds, No tenderness Musculoskeletal: No tenderness Integumentary: No rashes Neurological: Normal speech, Normal tone, Normal affect Lymphatics: No axilla or inguinal lymphadenopathy Laboratory Data at Discharge: WBC 9.0 K/uL (4.3-10.9) D 10/28/18 06:30 Hgb 7.6 g/dL (13.6-17.9) L* 10/28/18 06:30 Hct 22.4 % (39.6-49.0) L 10/28/18 06:30 Plt Count 159 K/uL (152-406) 10/28/18 06:30 Sodium 143 mmol/L (136-145) 10/28/18 06:30 Potassium 4.6 mmol/L (3.5-5.1) 10/28/18 06:30 BUN 23 mg/dL (7-18) H 10/28/18 06:30 Creatinine 1.33 mg/dL (0.55-1.3) H 10/28/18 06:30 Glucose 94 mg/dL (74-106) 10/28/18 06:30 Phosphorus 3.2 mg/dL (2.5-4.9) 10/26/18 05:25 Magnesium 1.9 mg/dL (1.8-2.4) 10/28/18 06:30 Total Bilirubin 0.3 mg/dL (0.2-1.0) 10/27/18 07:22 AST 24 U/L (15-37) 10/27/18 07:22 ALT 11 U/L (12-78) L 10/27/18 07:22 Alkaline Phosphatase 60 U/L (45-117) 10/27/18 07:22 Lipase 63 U/L (73-393) L 10/24/18 13:26 Home Medications: Furosemide 1 tab PO DAILY 10/24/18 Gabapentin 1 cap PO TID 10/24/18 Hydrocodone 10/APAP 325 [[place] 10/325*] 2 tab PO Q6H 10/24/18 Levothyroxine [Synthroid*] 0.112 mg PO [id number] 10/24/18 Liothyronine Sodium [Cytomel] 1 tab PO BID 10/24/18 Lisinopril 1 tab PO DAILY 10/24/18 Metoprolol Succinate [Toprol Xl] 1 tab PO DAILY 10/24/18 Tamsulosin [Flomax*] 0.4 mg PO BEDTIME 10/24/18 Triamterene/Hydrochlorothiazid [Triamterene-Hctz 75-50 mg Tab] 1 tab PO DAILY Patient Discharge Instructions: Please follow up with Dr. Conway in 1-2 weeks. Information has been provided to you. Once he gets results of the biopsy, further management/discussions can be had at that point. Please also follow up with the primary care physician in 2-3 days. Return to the emergency room for worsening symptoms. Diet: Regular Activity: Ad leydi Followup: Eddie Conway MD [ACTIVE - CAN ADMIT] - Time spent managing pt's care (in minutes): 55
[2018-10-28 18:53] VITALS: BP 154/65; TEMP 97.7
--- NOTE | 2018-10-29 23:09 | PN ---
Date of Progress Note: 10/28/2018 Patient was initially seen on 10/27/2018 for atrial fibrillation, new onset; and hematuria. Patient was seen on followup, continues to be in atrial fibrillation, rate controlled. No cardiac complaint. Continues to have some mild hematuria. Hemoglobin is stable at 7.6. Echocardiogram that was done showed normal ejection fraction with aortic sclerosis, mitral annular calcification, atrial fibrillat ion, left atrial enlargement, no thrombus. I still believe it is better not to anticoagulate Mr. Tri interiano. I think putting him back on verapamil as he was taking at home as an outpatient is the right thin g to do. A baby aspirin would be reasonable as well. We will be happy to see him in followup. ADRIAN/BRIAN Voice ID: [id number] Report ID: [id number]
--- NOTE | 2018-10-30 08:03 | ECHO ---
HEIGHT: 6 ft 1 in WEIGHT: 177 lb 0 oz DATE OF STUDY: 10/27/[address]: Kevin Gonzalez MD 2-DIMENSIONAL: YES M.MODE: YES DOPPLER: YES COLOR FLOW: YES TDS: YES PORTABLE: NO DEFINITY: NO BUBBLE STUDY: NO DIAGNOSIS: ATRIAL FIBRILLATION CARDIAC HISTORY: CATHERIZATION: NO SURGERY: NO PROSTHETIC VALVE: NO PACEMAKER: NO MEASUREMENTS (cm) DIASTOLIC (NORMALS) SYSTOLIC (NORMALS) IVSd 0.9 (0.6-1.2) LA Diam 3.9 (1.9-4.0) LVEF 58% LVIDd 4.5 (3.5-5.7) LVIDs 3.1 (2.0-3.5) %FS 30% LVPWd 1.0 (0.6-1.2) Ao Diam 3.5 (2.0-3.7) 2 DIMENSIONAL ASSESSMENT: RIGHT ATRIUM: NORMAL LEFT ATRIUM: NORMAL RIGHT VENTRICLE: NORMAL LEFT VENTRICLE: NORMAL TRICUSPID VALVE: NORMAL MITRAL VALVE: NORMAL PULMONIC VALVE: NORMAL AORTIC VALVE: NORMAL PERICARDIAL EFFUSION: NONE AORTIC ROOT: NORMAL LEFT VENTRICULAR WALL MOTION: NORMAL DOPPLER/COLOR FLOW: NORMAL COMMENTS: ATRIAL FIBRILLATION NOTED. NORMAL LEFT VENTRICULAR SIZE AND FUNCTION. NO THROMBUS. NO EFFUSION. TECHNOLOGIST: Kwesi NOVOA
== END 2018-10-28 17:24 | disposition home or self-care (01) | DRG 670 ==
LOC: ER 12:56 → ERHOLD 16:05 → 2ND 18:10
PROVIDERS: ADMIT Family Medicine; ATTEND Family Medicine
PROC: 0TBB8ZX Excision of Bladder, Via Natural or Artificial Opening Endoscopic, Diagnostic (ICD-10-PCS; principal; 2018-10-24)
PROC: 0TCB8ZZ Extirpation of Matter from Bladder, Via Natural or Artificial Opening Endoscopic (ICD-10-PCS; 2018-10-24)
PROC: 30233N1 Transfusion of Nonautologous Red Blood Cells into Peripheral Vein, Percutaneous Approach (ICD-10-PCS; 2018-10-25)
DX: C67.3 Malignant neoplasm of anterior wall of bladder (principal); G62.9 Polyneuropathy, unspecified; I48.91 Unspecified atrial fibrillation; R31.0 Gross hematuria; D64.9 Anemia, unspecified; Z85.46 Personal history of malignant neoplasm of prostate
CPT/HCPCS: 36415; 36430; 51702; 74177; 80048; 80053; 80076; 81001; 83690; 83735; 84100; 84153; 85014; 85018; 85025; 86850; 86900; 86901; 87040; 87086; 87088; 88300; 88304; 88305; 88307; 93005; 93306; 94760; 99285; J0696; J1580; J2270; J2370; J2704; J3010; J3475; J7030; P9016; Q9967

== ENCOUNTER 2018-11-14 12:16 | Observation (INO) | payer OTHER ==
--- NOTE | 2018-11-14 15:06 | ER ---
Nurse's Notes [facility] Name: Tariq Yang Age: 88 yrs Sex: Male : 1930 Arrival Date: 11/14/2018 Time: 12:23 Bed 25 Private MD: Diagnosis: Hematuria;Malignant neoplasm of bladder Presentation: 11/14 12:23 Presenting complaint: EMS states: Blood in Urine since yesterday. Pt is recently ca1 diagnosed with Bladder Ca. Was admitted here a few days ago and was discharged on the or for the same reason. Transition of care: patient was not received from another setting of care. Onset of symptoms was November 13, 2018. Risk Assessment: Do you want to hurt yourself or someone else? Patient reports no desire to harm self or others. Initial Sepsis Screen: Does the patient meet any 2 criteria? No. Patient's initial sepsis screen is negative. Does the patient have a suspected source of infection? No. Patient's initial sepsis screen is negative. Care prior to arrival: None. 12:23 Method Of Arrival: EMS: Terry ca1 12:23 Acuity: ANNE-MARIE 3 ca1 Historical: - Allergies: 12:26 PENICILLINS; ca1 - Home Meds: 12:26 Hydrocodone-Acetaminophen Oral [Active]; Verapamil Oral [Active]; ca1 - PMHx: 12:26 Neuropathy Arms and Legs; ca1 - PSHx: 12:26 Appendectomy; Cholecystectomy; Hernia repair; ca1 - Immunization history:: Adult Immunizations up to date. - Social history:: Smoking status: Patient/guardian denies using tobacco. - Ebola Screening: : Patient negative for fever greater than or equal to 101.5 degrees Fahrenheit, and additional compatible Ebola Virus Disease symptoms Patient denies exposure to infectious person Patient denies travel to an Ebola-affected area in the 21 days before illness onset No symptoms or risks identified at this time. Screenin:35 Abuse screen: Denies threats or abuse. Denies injuries from another. Nutritional ca1 screening: No deficits noted. Tuberculosis screening: No symptoms or risk factors identified. Fall Risk IV access (20 points). Ambulatory Aid- Crutches/Cane/Walker (15 pts). Gait- Weak (10 pts.). Total Hatfield Fall Scale indicates Low Risk Score (25-44 pts). Fall prevention measures have been instituted. Side Rails Up X 2 Frequent Obs/Assesments occuring Family Present and informed to notify staff if they need to leave bedside As available Patient and Family Educated on Fall Prevention Program and strategies. Assessment: 12:35 General: Appears in no apparent distress. comfortable, Behavior is calm, cooperative, ca1 appropriate for age. Pain: Denies pain. Neuro: Level of Consciousness is awake, alert, obeys commands, Oriented to person, place, time, situation, Appropriate for age. Cardiovascular: Heart tones S1 S2 present Capillary refill < 3 seconds Patient's skin is warm and dry. Pulses are all present. Respiratory: Airway is patent Respiratory effort is even, unlabored, Respiratory pattern is regular, symmetrical, Breath sounds are clear bilaterally. GI: Abdomen is flat, non-distended, Bowel sounds present X 4 quads. Abd is soft and non tender X 4 quads. : Reports bloody urine. EENT: No signs and/or symptoms were reported regarding the EENT system. Derm: Skin is intact, is healthy with good turgor, Skin is pink, warm \T\ dry. Musculoskeletal: Circulation, motion, and sensation intact. Capillary refill < 3 seconds, Range of motion: intact in all extremities. 13:24 Reassessment: Patient appears in no apparent distress at this time. Patient and/or ca1 family updated on plan of care and expected duration. Pain level reassessed. Patient is alert, oriented x 3, equal unlabored respirations, skin warm/dry/pink. 14:50 Reassessment: Patient appears in no apparent distress at this time. Patient and/or ca1 family updated on plan of care and expected duration. Pain level reassessed. Patient is alert, oriented x 3, equal unlabored respirations, skin warm/dry/pink. Reassessment: Swain inserted, irrigated bladder until drain is pink in color. 2-3 tiny clots noted. Pt tolerated well. Notified provider. 15:45 Reassessment: Patient appears in no apparent distress at this time. No changes from wh previously documented assessment. Patient and/or family updated on plan of care and expected duration. Pain level reassessed. Patient is alert, oriented x 3, equal unlabored respirations, skin warm/dry/pink. Continuous Bladder irrigation started draining well Patient denies pain at this time. 16:10 Reassessment: Patient appears in no apparent distress at this time. No changes from previously documented assessment. Patient and/or family updated on plan of care and expected duration. Pain level reassessed. Patient is alert, oriented x 3, equal unlabored respirations, skin warm/dry/pink. Dr Jacob and Dr Conway at bedside explaining plan of care to Pt. 16:35 Reassessment: Patient appears in no apparent distress at this time. No changes from previously documented assessment. Patient and/or family updated on plan of care and expected duration. Pain level reassessed. Patient is alert, oriented x 3, equal unlabored respirations, skin warm/dry/pink. Patient denies pain at this time. 17:36 Reassessment: Patient appears in no apparent distress at this time. No changes from previously documented assessment. Patient and/or family updated on plan of care and expected duration. Pain level reassessed. Patient is alert, oriented x 3, equal unlabored respirations, skin warm/dry/pink. Patient denies pain at this time. 18:50 Reassessment: Patient appears in no apparent distress at this time. No changes from previously documented assessment. Patient and/or family updated on plan of care and expected duration. Pain level reassessed. Patient is alert, oriented x 3, equal unlabored respirations, skin warm/dry/pink. Patient denies pain at this time. 19:37 Reassessment: Patient appears in no apparent distress at this time. Patient and/or ca1 family updated on plan of care and expected duration. Pain level reassessed. Patient is alert, oriented x 3, equal unlabored respirations, skin warm/dry/pink. Vital Signs: 12:26 BP 106 / 55; Pulse 82; Resp 17 S; Temp 98.2(O); Pulse Ox 97% on R/A; Weight 80.29 kg ca1 (R); Height 6 ft. 1 in. (185.42 cm) (R); Pain 0/10; 13:24 BP 116 / 52; Pulse 68; Resp 17 S; Pulse Ox 99% on R/A; ca1 13:27 BP 116 / 52; Pulse 70; Resp 16; Temp 97.8(O); Pulse Ox 100% ; lt1 14:35 BP 113 / 62; Pulse 65; Resp 17; Pulse Ox 98% on R/A; ca1 15:30 BP 132 / 62; Pulse 64; Resp 18; Pulse Ox 99% on R/A; wh 16:30 BP 119 / 59; Pulse 71; Resp 18; Pulse Ox 98% on R/A; wh 17:30 BP 136 / 59; Pulse 64; Resp 18; Pulse Ox 98% on R/A; wh 19:00 BP 134 / 78; Pulse 61; Resp 18; Pulse Ox 100% ; wh 19:37 BP 124 / 74; Pulse 69; Resp 17 S; Temp 98.5(O); Pulse Ox 99% on R/A; ca1 12:26 Body Mass Index 23.35 (80.29 kg, 185.42 cm) ca1 ED Course: 12:23 Patient arrived in ED. ca1 12:25 Triage completed. ca1 12:26 Arm band placed on right wrist. ca1 12:32 Mic Cameron MD is Attending Physician. gs 12:35 Patient has correct armband on for positive identification. Placed in gown. Bed in low ca1 position. Call light in reach. Side rails up X2. Pulse ox on. NIBP on. Warm blanket given. 12:55 Tamela Ryder, MARQUIS is Primary Nurse. ca1 14:58 No provider procedures requiring assistance completed. Coud inserted, using sterile ca1 technique, 20 Fr. Returned bloody urine. To gravity drainage. Patient tolerated well. Irrigated until urine drain is pink in color. Tiny clots at 2-3 in number. Urethra and bladder not obstructed. Patient did not have IV access during this emergency room visit. 15:05 Eddie Conway MD is Referral Physician. 15:26 Merrill Jacob MD is Hospitalizing Provider. 16:00 Inserted saline lock: 20 gauge in right antecubital area, using aseptic technique. Blood collected. Administered Medications: No medications were administered Outcome: 15:05 Discharge ordered by . gs 15:27 Decision to Hospitalize by Provider. 19:44 Admitted to Tele accompanied by [facility], via stretcher, room 419, with chart, Report ca1 called to Tano Parks RN 19:44 Condition: stable 19:44 Instructed on the need for admit. 20:05 Patient left the ED. [facility] Signatures: More Bunn Mic Cameron MD MD Tamela Ryder RN RN ca1 Nuno, Triny lt1 Corrections: (The following items were deleted from the chart) 16:46 15:45 Reassessment: Patient appears in no apparent distress at this time. No changes wh from previously documented assessment. Patient and/or family updated on plan of care and expected duration. Pain level reassessed. Patient is alert, oriented x 3, equal unlabored respirations, skin warm/dry/pink. Patient denies pain at this time. wh
--- NOTE | 2018-11-14 15:06 | EDPHYS ---
Physician Documentation [facility] Name: Tariq Yang Age: 88 yrs Sex: Male : 1930 Arrival Date: 11/14/2018 Time: 12:23 Bed 25 Private MD: ED Physician Mic Cameron HPI: 11/14 15:08 This 88 yrs old Unknown Male presents to ER via EMS with complaints of hematuria. gs 15:08 The patient presents with urinary symptoms, hematuria. Onset: The symptoms/episode gs began/occurred gradually. Modifying factors: The symptoms are alleviated by nothing, the symptoms are aggravated by nothing. Associated signs and symptoms: Pertinent positives: hematuria, Pertinent negatives: dysuria, fever. Severity of symptoms: At their worst the symptoms were moderate, in the emergency department the symptoms have improved, moderately. The patient has experienced similar episodes in the past, a few times. The patient has been recently been admitted at [facility], was discharged last week, for similar complaints. Historical: - Allergies: 12:26 PENICILLINS; ca1 - Home Meds: 12:26 Hydrocodone-Acetaminophen Oral [Active]; Verapamil Oral [Active]; ca1 - PMHx: 12:26 Neuropathy Arms and Legs; ca1 - PSHx: 12:26 Appendectomy; Cholecystectomy; Hernia repair; ca1 - Immunization history:: Adult Immunizations up to date. - Social history:: Smoking status: Patient/guardian denies using tobacco. - Ebola Screening: : Patient negative for fever greater than or equal to 101.5 degrees Fahrenheit, and additional compatible Ebola Virus Disease symptoms Patient denies exposure to infectious person Patient denies travel to an Ebola-affected area in the 21 days before illness onset No symptoms or risks identified at this time. ROS: 15:08 All other systems are negative. gs Exam: 15:08 Head/Face: Normocephalic, atraumatic. ENT: Nares patent. No nasal discharge, no gs septal abnormalities noted. Tympanic membranes are normal and external auditory canals are clear. Oropharynx with no redness, swelling, or masses, exudates, or evidence of obstruction, uvula midline. Mucous membranes moist. Cardiovascular: Regular rate and rhythm with a normal S1 and S2. No gallops, murmurs, or rubs. Normal PMI, no JVD. No pulse deficits. Respiratory: Lungs have equal breath sounds bilaterally, clear to auscultation and percussion. No rales, rhonchi or wheezes noted. No increased work of breathing, no retractions or nasal flaring. Abdomen/GI: Soft, non-tender, with normal bowel sounds. No distension or tympany. No guarding or rebound. No evidence of tenderness throughout. Back: No spinal tenderness. No costovertebral tenderness. Full range of motion. 15:08 Skin: Warm, dry with normal turgor. Normal color with no rashes, no lesions, and no evidence of cellulitis. MS/ Extremity: Pulses equal, no cyanosis. Neurovascular intact. Full, normal range of motion. Neuro: Awake and alert, GCS 15, oriented to person, place, time, and situation. Cranial nerves II-XII grossly intact. Motor strength 5/5 in all extremities. Sensory grossly intact. Cerebellar exam normal. Normal gait. 15:08 Constitutional: The patient appears alert, awake. 15:08 : Bladder: distension, is not appreciated. Vital Signs: 12:26 BP 106 / 55; Pulse 82; Resp 17 S; Temp 98.2(O); Pulse Ox 97% on R/A; Weight 80.29 kg ca1 (R); Height 6 ft. 1 in. (185.42 cm) (R); Pain 0/10; 13:24 BP 116 / 52; Pulse 68; Resp 17 S; Pulse Ox 99% on R/A; ca1 13:27 BP 116 / 52; Pulse 70; Resp 16; Temp 97.8(O); Pulse Ox 100% ; lt1 14:35 BP 113 / 62; Pulse 65; Resp 17; Pulse Ox 98% on R/A; ca1 15:30 BP 132 / 62; Pulse 64; Resp 18; Pulse Ox 99% on R/A; wh 16:30 BP 119 / 59; Pulse 71; Resp 18; Pulse Ox 98% on R/A; wh 17:30 BP 136 / 59; Pulse 64; Resp 18; Pulse Ox 98% on R/A; wh 19:00 BP 134 / 78; Pulse 61; Resp 18; Pulse Ox 100% ; wh 19:37 BP 124 / 74; Pulse 69; Resp 17 S; Temp 98.5(O); Pulse Ox 99% on R/A; ca1 12:26 Body Mass Index 23.35 (80.29 kg, 185.42 cm) ca1 MDM: 13:11 Patient medically screened. 15:08 Data reviewed: vital signs, nurses notes. Physician consultation: Eddie Conway MD and will see patient in office, tomorrow. ED course: not in retention , no large clots urine clear will discharge follow up dr conway. 15:24 Differential diagnosis: UTI, urinary retention, Swain catheter problem, bladder tumor gs hemorrhage. 15:27 Physician consultation: Physician consultation: and will see patient in inpatient room, dr conway said to supervisor general to irrigation will see soon. 11/14 16:08 Order name: CBC with Diff gs 11/14 16:08 Order name: Basic Metabolic Panel 11/14 14:00 Order name: Swain-Hematuria: lubricate urethra first irrigate with 3 way catheter; Complete Time: 14:58 11/14 16:09 Order name: Basic Metabolic Panel EDMS 11/14 16:09 Order name: CBC with Automated Diff EDMS Administered Medications: No medications were administered Disposition: 11/14/18 15:27 Hospitalization ordered by Merrill Jacob for Observation. Preliminary diagnosis are Hematuria, Malignant neoplasm of bladder. - Bed requested for Telemetry/MedSurg (observation). - Status is Observation. ca1 - Condition is Stable. - Problem is an acute exacerbation. - Symptoms have improved. UTI on Admission? Yes Signatures: Dispatcher [employer] EDMS Kari Davila RN RN dw Mic Cameron MD MD Tamela Ryder RN RN ca1 Corrections: (The following items were deleted from the chart) 15:21 15:05 11/14/2018 15:05 Discharged to Home. Impression: Hematuria; Malignant neoplasm of gs bladder. Condition is Stable. Forms are Medication Reconciliation Form, Thank You Letter, Antibiotic Education, Prescription Opioid Use. Follow up: Eddie Conway; When: 1 - 2 days; Reason: Re-evaluation by your physician. 18:33 15:27 Hospitalization Ordered by Merrill Jacob MD for Observation. Preliminary diagnosis dw is Hematuria; Malignant neoplasm of bladder. Bed requested for Telemetry/MedSurg (observation). Status is Observation. Condition is Stable. Problem is an acute exacerbation. Symptoms have improved. UTI on Admission? Yes. 20:05 18:33 11/14/2018 15:27 Hospitalization Ordered by Merrill Jacob MD for Observation. ca1 Preliminary diagnosis is Hematuria; Malignant neoplasm of bladder. Bed requested for Telemetry/MedSurg (observation). Status is Observation. Condition is Stable. Problem is an acute exacerbation. Symptoms have improved. UTI on Admission? Yes. dw
[2018-11-14] MEDS ORDERED: NACL 0.9% IRR SOLN 2,000 ML IRR ONE ×2 (15:27→20:44)
--- NOTE | 2018-11-14 16:16 | P.HP ---
Certification for Inpatient Patient admitted to: Observation Practitioner: I am a practitioner with admitting privileges, knowledge of patient current condition, hospital course, and medical plan of care. Services: Services provided to patient in accordance with Admission requirements found in Title 42 Section 412.3 of the Code of Federal Regulations Patient History Date of Service: 11/14/18 History of Present Illness: This is a 88-year-old male with history of neuropathy and prostate cancer status post radiation therapy 1 year ago admitted for hematuria. Patient was recently discharged on 10/29/18 for the same symptoms. At that time, he was found to have a exophytic bladder mass with extension through thte bladder wall and consistent with an aggressive tumor. He was scheduled with Dr. Rucker for radiation therapy but patient was not able to make th eappointment and it was rescheduled to the 16 of november. Today, he was noted to have hematuria again and therefore called EMS to come to the ER. In the ER, he was hemodynamically stable with BP of 106/55, HR 82, RR 17. Afebrile at 98.2, satting 97% on RA and BMI of 23.58. No labs were done in the ER. Labs ordered by me, now pending. Patient denies any chest pain, shortness of breath, abdominal pain, vision changes, headache, lightheadedness, syncope or other GI complaints. In the ER, he received bladder irrigation. Patient was also evaluated by Dr. Conway in the ER. At the time of my exam, he was alert oriented x3, in no acute distress, hemodynamically stable. His urine looked less red. Allergies Penicillins Allergy (Verified 10/24/18 19:52) Hives/Rash Home medications list reviewed: Yes Home Medications: Furosemide 1 tab PO DAILY 10/24/18 Gabapentin 1 cap PO TID 10/24/18 Hydrocodone 10/APAP 325 [Hiram 10/325*] 2 tab PO Q6H 10/24/18 Levothyroxine [Synthroid*] 0.112 mg PO [id number] 10/24/18 Liothyronine Sodium [Cytomel] 1 tab PO BID 10/24/18 Lisinopril 1 tab PO DAILY 10/24/18 Metoprolol Succinate [Toprol Xl] 1 tab PO DAILY 10/24/18 Tamsulosin [Flomax*] 0.4 mg PO BEDTIME 10/24/18 Triamterene/Hydrochlorothiazid [Triamterene-Hctz 75-50 mg Tab] 1 tab PO DAILY - Past Medical/Surgical History Diabetic: No -: Prostate cancer, radiation therapy -: neuropahty -: appy -: alek - Social History Alcohol use: No CD- Drugs: No Caffeine use: Yes Review of Systems 10-point ROS is otherwise unremarkable Physical Examination - Physical Exam General: Alert, In no apparent distress, Cachectic, Other (elderly, ill appearing) HEENT: Atraumatic, PERRLA, Mucous membr. moist/pink, EOMI, Sclerae nonicteric Neck: Supple, 2+ carotid pulse no bruit, No LAD, Without JVD or thyroid abnormality Respiratory: Clear to auscultation bilaterally, Normal air movement Cardiovascular: Regular rate/rhythm, Normal S1 S2 Gastrointestinal: Normal bowel sounds, No tenderness Musculoskeletal: No tenderness Integumentary: No rashes Neurological: Normal gait, Normal speech, Normal strength at 5/5 x4 extr, Normal tone, Normal affect Lymphatics: No axilla or inguinal lymphadenopathy Assessment and Plan - Problems (Diagnosis) (1) Hematuria Current Visit: No Status: Acute Plan: Likely secondary to neoplasm invading the bladder wall. -Dr. Conway, urology consulted. Patient evaluated by Dr. Conway in ER. -Continue continuous bladder irrigation -Follow up labs,transfuse for Hgb less than 7 -Previous visit: abdominal CT with exophytic bladder mass which probably extends through the wall. 4 centimeter soft tissue structure containing a few air bubbles lies adjacent to the anterior left aspect of the bladder. Small amount of surrounding fluid is seen.consistent with aggressive tumor. -monitor vital signs -Explained the importance of follow up with Radiation therapy. -Overall, poor prognosis. Will need to re-discuss hospice as patient not a good candidate for any invasive procedures. Qualifiers: Hematuria type: unspecified type Qualified Code(s): R31.9 - Hematuria, unspecified (2) History of prostate cancer Current Visit: No Status: Chronic - Plan DVT prophylaxis: None (d/t bleeding) GI prophylaxis: None Diet: Regular Disposition: Admit to floor, continue bladder irrigation. Patient will benefit from radiation therapy. case was discussed with Dr. Rucker in Radiation center and patient may be able to go there tomorrow for his radiation therapy. - Advance Directives Does patient have a Living Will: No Does patient have a Durable POA for Healthcare: No Time Spent Managing Pts Care (In Minutes): 55
[2018-11-14 16:35] LABS: Absolute Lymphocytes (CBC) 1.5 K/uL (0.7-4.9); Basophils % 0.5 % (0-1.3); Hematocrit 27.3 % (39.6-49.0); Lymphocytes % 15.2 % (15.3-44.8); MPV 9.3 fL (7.6-11.3); RBC Red Blood Cell Count 2.83 M/uL (4.33-5.43)
[2018-11-14 18:11] LABS: Potassium 4.3 mmol/L (3.5-5.1)
[2018-11-14] MEDS ORDERED: ONDANSETRON 4 MG/2 ML VIAL IV PRN (20:24)
[2018-11-14 21:36] VITALS: BMI 21.3
[2018-11-14] MEDS: SODIUM CHL 0.9% IRR SOLN 2000 ML IRR SCH (22:33)
[2018-11-15] MEDS: SODIUM CHL 0.9% IRR SOLN 2000 ML IRR SCH ×3 (01:23→06:31)
[2018-11-15] MEDS ORDERED: D5.45NS W/KCL 20MEQ 20 MEQ/1,000 ML BAG IV SCH (05:00)
[2018-11-15] MEDS ORDERED: D5 0.45 NS 1,000 ML IV SCH (05:00)
[2018-11-15 05:52] LABS: Absolute Lymphocytes (CBC) 1.5 K/uL (0.7-4.9); Basophils % 0.2 % (0-1.3); Hematocrit 25.4 % (39.6-49.0); MPV 9.4 fL (7.6-11.3); RBC Red Blood Cell Count 2.65 M/uL (4.33-5.43)
[2018-11-15 05:58] LABS: Albumin 2.8 g/dL (3.4-5.0); Bilirubin Total 0.5 mg/dL (0.2-1.0); Magnesium 1.8 mg/dL (1.8-2.4); Phosphorus 3.5 mg/dL (2.5-4.9); Potassium 4.9 mmol/L (3.5-5.1); Protein, Total 6.9 g/dL (6.4-8.2)
[2018-11-15] MEDS ORDERED: MAGNESIUM SULFATE 1 gm IVPB 1 GM/100 ML BAG IV ONE (07:30)
--- NOTE | 2018-11-15 07:51 | PN ---
Subjective: Patient is sleeping. Urine looks clear to me this morning, he is doing well. We will t urn off the CBI, plug the third port, sent him to Radiation Oncology. His lab studies were reviewed. His H and H are 8.5 and 25. He is not bleeding anymore. Creatinine is 2.25. His GFR is 28, and w e will see what Oncology can do for him. I did order a bladder ultrasound to check for clots to see how his bladder looks. We will leave the catheter in to help with the radiation, help to keep the bl adder the same size when they do the radiation. CHEN/BRIAN Voice ID: [id number] Report ID: [id number]
--- NOTE | 2018-11-15 08:45 | CON ---
History Of Present Illness: 88-year-old gentleman with high-grade muscle invasive bladder cancer in the left anterior dome, possible invasion of sigmoid colon with positive nodes. No signs of distant metastasis, but possible local metastasis and invasion into the sigmoid. Urology does not have any options to offer this patient. Other options include Chemoradiation versus hospice. Now, he is here in the ER for gross hematuria, passing clots last night. He has some labs pending. He has a poor performance status, pretty much almost a bedbound patient and should seriously consider hospice. He delayed his appointment to see the radiation oncologist until 11/21/2018. He now has a 3- way Wsain catheter in place with light pink urine, going on CBI. He will be admitted overnight for observation and then tomorrow morning he will go and see Dr. Rucker in the office. I have spoken to Dr. Rucker about it. He is going to see him without an appointment and see what he can do for the patient probably some radiation with tiny amount of chemo to help reduce the bleeding. Past Medical History: Bladder cancer, prostate cancer, hypertension, back surgery, hernia surgery, appendectomy, laparoscopic cholecystectomy, circumcision. Family History: An uncle had malignant neoplasm of the prostate, hypertension _ . Immunizations: Up to date. Social History: Tobacco, quit smoking in 1956, was smoking 2 packs a day for 15 years. Alcohol, 4 drinks per year. Drugs, none __ivda none. Current Medications: Gabapentin, levothyroxine, lisinopril, tamsulosin, metoprolol, triamterene, hydrochlorothiazide, Cipro. Physical Examination: Vital Signs: Afebrile, stable in the ER. HEENT: Atraumatic, normocephalic. Left eye closed, right eye slightly open . Abdomen: Soft, nontender. Swain catheter is draining light pink urine, increase his CBI. Extremities: Normal range of motion. : 3 way irrigation cath going with NS. Laboratory Data: Pending. X-rays, none. Assessment: Malignant neoplasia in anterior wall of the bladder wall with local extension in the sigmoid and positive targeted nodes. No signs of distant metastasis. Plan: To admit the patient overnight, CBI, see Dr. Rucker in the morning. Consult for radiation chemo. Patient is to also decide whether he wants to go to hospice or not. CHEN/BRIAN Voice ID: [id number] Report ID: [id number] LEA
--- NOTE | 2018-11-15 09:45 | RAD REPORT ---
EXAM DESCRIPTION: US - Urinary Bladder - 11/15/2018 8:57 am CLINICAL HISTORY: Bladder mass FINDINGS: A Swain catheter is present within the bladder. Isoechoic structure measuring 6 centimeters which is ill-defined is present within the bladder lumen. IMPRESSION: A 6 centimeter mass within the bladder. It is difficult to determine what portion of thi s is mass versus hematoma.
[2018-11-15 10:36] VITALS: O2SAT 100
[2018-11-15 12:24] VITALS: BP 122/57; TEMP 97.6
--- NOTE | 2018-11-24 14:30 | P.SSS ---
Patient History Date of Service: 11/15/18 Reason for admission: Hematuria History of Present Illness: This is a 88-year-old male with history of neuropathy and prostate cancer status post radiation therapy 1 year ago admitted for hematuria. Patient was recently discharged on 10/29/18 for the same symptoms. At that time, he was found to have a exophytic bladder mass with extension through thte bladder wall and consistent with an aggressive tumor. He was scheduled with Dr. Rucker for radiation therapy but patient was not able to make th eappointment and it was rescheduled to the 16 of november. Today, he was noted to have hematuria again and therefore called EMS to come to the ER. In the ER, he was hemodynamically stable with BP of 106/55, HR 82, RR 17. Afebrile at 98.2, satting 97% on RA and BMI of 23.58. No labs were done in the ER. Labs ordered by me, now pending. Patient denies any chest pain, shortness of breath, abdominal pain, vision changes, headache, lightheadedness, syncope or other GI complaints. In the ER, he received bladder irrigation. Patient was also evaluated by Dr. Conway in the ER. At the time of my exam, he was alert oriented x3, in no acute distress, hemodynamically stable. His urine looked less red. Allergies Penicillins Allergy (Verified 10/24/18 19:52) Hives/Rash Home medications list reviewed: Yes Home Medications: Furosemide 1 tab PO DAILY 10/24/18 Gabapentin 1 cap PO TID 10/24/18 Hydrocodone 10/APAP 325 [[place] 10/325*] 1 - 2 tab PO Q6H 10/24/18 Levothyroxine [Synthroid*] 0.112 mg PO [id number] 10/24/18 Lisinopril 1 tab PO DAILY 10/24/18 Metoprolol Succinate [Toprol Xl] 1 tab PO DAILY 10/24/18 Tamsulosin [Flomax*] 0.8 mg PO BEDTIME 10/24/18 Gabapentin [Neurontin] 600 mg PO BEDTIME 11/20/18 - Past Medical/Surgical History Has patient received pneumonia vaccine in the past: No Diabetic: No -: Prostate cancer, radiation therapy -: CIDP-chronic inflammatory polyneuropathy -: appy -: alek -: hernia repair - Family History Father -: Hypertension, Cancer Notes: prostate CA Mother Notes: Rheumatoid arthritis - Social History Smoking Status: Former smoker Alcohol use: Yes CD- Drugs: No Caffeine use: Yes Place of Residence: Home Review of Systems 10-point ROS is otherwise unremarkable Physical Examination - Vital Signs Temperature: 97.6 F Blood Pressure: 122/57 Pulse: 71 Respirations: 18 Pulse Ox (%): 99 - Physical Exam General: Alert, In no apparent distress, Cachectic HEENT: Atraumatic, PERRLA, Mucous membr. moist/pink, EOMI, Sclerae nonicteric Neck: Supple, 2+ carotid pulse no bruit, No LAD, Without JVD or thyroid abnormality Respiratory: Clear to auscultation bilaterally, Normal air movement Cardiovascular: Regular rate/rhythm, Normal S1 S2 Gastrointestinal: Normal bowel sounds, No tenderness Musculoskeletal: No tenderness Integumentary: No rashes Neurological: Normal gait, Normal speech, Normal strength at 5/5 x4 extr, Normal tone, Normal affect Lymphatics: No axilla or inguinal lymphadenopathy - Diagnosis (Problem(s)) (1) Hematuria Status: Acute Qualifiers: (2) History of prostate cancer Status: Chronic Treatment Summary: Patient was admitted, Dr. Conway saw patient in ER. He was provided with continuous bladder irrigation. He was admitted for observation. He remained stable througout the stay. He was discharged and wheeled over to radiation therapy for further management. Overall, patient has a poor prognosis. Bekah with [facility] contacted and given patient information to be provided with more information. - Disposition Discharge Date: 11/15/18 Disposition: ROUTINE DISCHARGE Condition: FAIR Patient Discharge Instructions: Please follow up with your primary care physicain in 2-3 days. Please return to the ER for worsening symptoms. Hospice eligibility services representative will contact you to give you more information regarding hospice. Diet: Regular Activity: Ad leydi
== END 2018-11-15 14:12 | disposition home or self-care (01) ==
LOC: ER 12:16 → ERHOLD 16:08 → 4TH 19:55
PROVIDERS: ADMIT Family Medicine; ATTEND Family Medicine
DX: R31.9 Hematuria, unspecified (principal); C67.3 Malignant neoplasm of anterior wall of bladder; C61 Malignant neoplasm of prostate; I10 Essential (primary) hypertension; G61.81 Chronic inflammatory demyelinating polyneuritis; Z88.0 Allergy status to penicillin; Z87.891 Personal history of nicotine dependence; Z90.49 Acquired absence of other specified parts of digestive tract; Z80.42 Family history of malignant neoplasm of prostate; Z82.49 Family history of ischemic heart disease and other diseases of the circulatory system; Z82.61 Family history of arthritis
CPT/HCPCS: 85025 ×2; 80048; 36415; 83735; 84100; 80053; 76857; 94760; 99285; J3475; G0378 ×3

== ENCOUNTER 2018-11-19 13:20 | Observation (INO) | payer OTHER ==
[2018-11-19 14:56] LABS: Basophils % 0.3 % (0-1.3); Lymphocytes % 10.8 % (15.3-44.8); MPV 8.8 fL (7.6-11.3); RBC Red Blood Cell Count 2.18 M/uL (4.33-5.43)
[2018-11-19 15:10] LABS: Potassium 4.2 mmol/L (3.5-5.1)
[2018-11-19 15:21] LABS: Hematocrit 20.7 % (39.6-49.0)
[2018-11-19] MEDS ORDERED: NA CHLORIDE 0.9% 250 ML ONE ×2 (17:30→21:38)
--- NOTE | 2018-11-19 18:01 | ER ---
Nurse's Notes [facility] Name: Tariq Yang Age: 88 yrs Sex: Male : 1930 Arrival Date: 11/19/2018 Time: 13:35 Bed 16 Private MD: Diagnosis: Hematuria;Anemia Presentation: 11/19 13:35 Presenting complaint: EMS states: Pt. has bladder cancer and noticed blood in his rb1 urine. He is not currently doing chemo or radiation. C/o dizziness. Allergic to pencillins. 12- Lead SR went into A-Fib on the way here. BS 125, Temperature 99.4. 13:35 Transition of care: patient was not received from another setting of care. Onset of rb1 symptoms was November 19, 2018. Risk Assessment: Do you want to hurt yourself or someone else? Patient reports no desire to harm self or others. Care prior to arrival: None. 13:35 Method Of Arrival: EMS: [facility] 13:35 Acuity: ANNE-MARIE 3 rb1 13:35 Initial Sepsis Screen: Does the patient meet any 2 criteria? No. Patient's initial rb1 sepsis screen is negative. Does the patient have a suspected source of infection? No. Patient's initial sepsis screen is negative. Triage Assessment: 13:35 General: Appears in no apparent distress. comfortable, Behavior is calm, cooperative, rb1 Denies fever. Pain: Denies pain. Neuro: Level of Consciousness is awake, alert, obeys commands, Oriented to person, place, time, situation. Cardiovascular: Capillary refill < 3 seconds is brisk in bilateral fingers. Respiratory: Airway is patent Respiratory effort is even, unlabored, Respiratory pattern is regular, symmetrical. GI: No signs and/or symptoms were reported involving the gastrointestinal system. : Reports blood in urine. Derm: Skin is dry, Skin is pale, Skin temperature is warm. Historical: - Allergies: 13:35 PENICILLINS; rb1 - Home Meds: 13:35 Hydrocodone-Acetaminophen Oral [Active]; Imodium Oral [Active]; Verapamil Oral [Active];rb1 - PMHx: 13:35 Neuropathy Arms and Legs; Bladder Cancer; rb1 - PSHx: 13:35 Appendectomy; Cholecystectomy; Hernia repair; rb1 - Immunization history:: Adult Immunizations up to date. - Social history:: Smoking status: Patient/guardian denies using tobacco. - Ebola Screening: : Patient negative for fever greater than or equal to 101.5 degrees Fahrenheit, and additional compatible Ebola Virus Disease symptoms. Screenin:35 Abuse screen: Denies threats or abuse. Nutritional screening: No deficits noted. rb1 Tuberculosis screening: No symptoms or risk factors identified. Fall Risk None identified. Assessment: 13:35 General: See triage assessment. rb1 14:09 Reassessment: Patient appears in no apparent distress at this time. No changes from rb1 previously documented assessment. 14:50 Reassessment: Patient appears in no apparent distress at this time. Patient and/or rb1 family updated on plan of care and expected duration. Pain level reassessed. Patient is alert, oriented x 3, equal unlabored respirations, skin warm/dry/pink. Pulled the recollect for labs. 15:25 Reassessment: Pt. resting with eyes closed, respirations even, unlabored. Call light rb1 within reach. 16:25 Reassessment: Patient appears in no apparent distress at this time. Patient and/or rb1 family updated on plan of care and expected duration. Pain level reassessed. Patient is alert, oriented x 3, equal unlabored respirations, skin warm/dry/pink. 17:22 Reassessment: Patient appears in no apparent distress at this time. No changes from rb1 previously documented assessment. 18:20 Reassessment: Patient appears in no apparent distress at this time. Patient denies pain rb1 at this time. Respiratory: Denies cough, pain with respiration. 19:00 Reassessment: Patient appears in no apparent distress at this time. Patient and/or jb4 family updated on plan of care and expected duration. Pain level reassessed. Patient is alert, oriented x 3, equal unlabored respirations, skin warm/dry/pink. Blood cross checked with MARQUIS Hill. 19:39 Reassessment: Attempted to call MARQUIS Mi to give report but was told she would call rb1 back because she is in a pt. room. 19:46 Reassessment: Patient appears in no apparent distress at this time. Patient and/or jb4 family updated on plan of care and expected duration. Pain level reassessed. Patient is alert, oriented x 3, equal unlabored respirations, skin warm/dry/pink. 20:30 Reassessment: Patient appears in no apparent distress at this time. Patient and/or jb4 family updated on plan of care and expected duration. Pain level reassessed. Patient is alert, oriented x 3, equal unlabored respirations, skin warm/dry/pink. Vital Signs: 13:26 BP 153 / 75; Pulse 95; Resp 17; Temp 98.9(O); Pulse Ox 100% ; Weight 80.29 kg (R); rb1 Height 6 ft. 1 in. (185.42 cm) (R); Pain 0/10; 14:25 BP 139 / 74; Pulse 80; Resp 16; Pulse Ox 99% ; Pain 0/10; rb1 15:24 BP 128 / 62; Pulse 69; Resp 13; Pulse Ox 100% on R/A; Pain 0/10; rb1 16:23 BP 150 / 73; Pulse 87; Resp 20; Pulse Ox 100% on R/A; Pain 0/10; rb1 17:00 BP 142 / 55; Pulse 70; Resp 14; Pulse Ox 100% on R/A; Pain 0/10; rb1 18:00 BP 152 / 76; Pulse 74; Resp 17; Pulse Ox 99% ; Pain 0/10; rb1 19:00 BP 136 / 65; Pulse 91; Resp 17; Pulse Ox 99% on R/A; Pain 0/10; rb1 13:26 Body Mass Index 23.35 (80.29 kg, 185.42 cm) rb1 ED Course: 13:35 Patient arrived in ED. rb1 13:35 Arm band placed on left wrist. rb1 13:35 Patient has correct armband on for positive identification. Bed in low position. Call rb1 light in reach. Side rails up X2. bus monitor on. Pulse ox on. NIBP on. Warm blanket given. 13:35 Maintain EMS IV. Dressing intact. Good blood return noted. Site clean \T\ dry. Gauge \T\ rb 1 site: 20 g R AC. 14:01 Liz Paz RN is Primary Nurse. rb1 14:02 Marky Aviles PA is PHCP. jr8 14:02 Pravin Munson MD is Attending Physician. jr8 14:56 Triage completed. rb1 17:59 Merrill Jacob MD is Hospitalizing Provider. jr8 18:58 Report given to MARQUIS Otto. rb1 20:30 No provider procedures requiring assistance completed. Patient admitted, IV remains in jb4 place. Administered Medications: No medications were administered Outcome: 17:59 Decision to Hospitalize by Provider. hilario 20:30 Admitted to Tele accompanied by nurse, via stretcher, room 409, with chart, Report jb4 called to marquis mi 20:30 Condition: stable 20:30 Discharge instructions given to patient, Instructed on the need for admit, Demonstrated understanding of instructions. 20:38 Patient left the ED. jb4 Signatures: Marky Aviles PA PA jr8 Liz Paz, RN RN [facility] Momo Upton RN RN jb4
--- NOTE | 2018-11-19 18:01 | EDPHYS ---
Physician Documentation [facility] Name: Tariq Yang Age: 88 yrs Sex: Male : 1930 Arrival Date: 11/19/2018 Time: 13:35 Bed 16 Private MD: ED Physician Pravin Munson HPI: 11/19 14:09 This 88 yrs old Unknown Male presents to ER via Unassigned with complaints of Blood in jr8 Urine; Bladder Cancer. 14:09 Onset: The symptoms/episode began/occurred today. Associated signs and symptoms: jr8 Pertinent positives: shortness of breath. Pt has blood in urine 2/2 bladder cancer. Has had to have transfusion recently. Reports he is still able to pass urine without a catheter and has a procedure scheduled on Tuesday to have radiation therapy on his bladder. Reports he feels like his blood levels are low again. Historical: - Allergies: 13:35 PENICILLINS; rb1 - Home Meds: 13:35 Hydrocodone-Acetaminophen Oral [Active]; Imodium Oral [Active]; Verapamil Oral [Active];rb1 - PMHx: 13:35 Neuropathy Arms and Legs; Bladder Cancer; rb1 - PSHx: 13:35 Appendectomy; Cholecystectomy; Hernia repair; rb1 - Immunization history:: Adult Immunizations up to date. - Social history:: Smoking status: Patient/guardian denies using tobacco. - Ebola Screening: : Patient negative for fever greater than or equal to 101.5 degrees Fahrenheit, and additional compatible Ebola Virus Disease symptoms. ROS: 14:09 Constitutional: Negative for fever, chills, and weight loss, Eyes: Negative for injury, jr8 pain, redness, and discharge, ENT: Negative for injury, pain, and discharge, Neck: Negative for injury, pain, and swelling, Cardiovascular: Negative for chest pain, palpitations, and edema, Respiratory: Negative for shortness of breath, cough, wheezing, and pleuritic chest pain, Abdomen/GI: Negative for abdominal pain, nausea, vomiting, diarrhea, and constipation, Back: Negative for injury and pain, MS/Extremity: Negative for injury and deformity, Neuro: Negative for headache, weakness, numbness, tingling, and seizure. 14:09 : Positive for hematuria. Exam: 14:12 Constitutional: This is a well developed, well nourished patient who is awake, alert, jr8 and in no acute distress. Head/Face: Normocephalic, atraumatic. Eyes: Pupils equal round and reactive to light, extra-ocular motions intact. Lids and lashes normal. Conjunctiva and sclera are non-icteric and not injected. Cornea within normal limits. Periorbital areas with no swelling, redness, or edema. ENT: Nares patent. No nasal discharge, no septal abnormalities noted. Tympanic membranes are normal and external auditory canals are clear. Oropharynx with no redness, swelling, or masses, exudates, or evidence of obstruction, uvula midline. Mucous membranes moist. Neck: Trachea midline, no thyromegaly or masses palpated, and no cervical lymphadenopathy. Supple, full range of motion without nuchal rigidity, or vertebral point tenderness. No Meningismus. Chest/axilla: Normal chest wall appearance and motion. Nontender with no deformity. No lesions are appreciated. Cardiovascular: Regular rate and rhythm with a normal S1 and S2. No gallops, murmurs, or rubs. Normal PMI, no JVD. No pulse deficits. Respiratory: Lungs have equal breath sounds bilaterally, clear to auscultation and percussion. No rales, rhonchi or wheezes noted. No increased work of breathing, no retractions or nasal flaring. Abdomen/GI: Soft, non-tender, with normal bowel sounds. No distension or tympany. No guarding or rebound. No evidence of tenderness throughout. MS/ Extremity: Pulses equal, no cyanosis. Neurovascular intact. Full, normal range of motion. Neuro: Awake and alert, GCS 15, oriented to person, place, time, and situation. Cranial nerves II-XII grossly intact. Motor strength 5/5 in all extremities. Sensory grossly intact. Cerebellar exam normal. Normal gait. Vital Signs: 13:26 BP 153 / 75; Pulse 95; Resp 17; Temp 98.9(O); Pulse Ox 100% ; Weight 80.29 kg (R); rb1 Height 6 ft. 1 in. (185.42 cm) (R); Pain 0/10; 14:25 BP 139 / 74; Pulse 80; Resp 16; Pulse Ox 99% ; Pain 0/10; rb1 15:24 BP 128 / 62; Pulse 69; Resp 13; Pulse Ox 100% on R/A; Pain 0/10; rb1 16:23 BP 150 / 73; Pulse 87; Resp 20; Pulse Ox 100% on R/A; Pain 0/10; rb1 17:00 BP 142 / 55; Pulse 70; Resp 14; Pulse Ox 100% on R/A; Pain 0/10; rb1 18:00 BP 152 / 76; Pulse 74; Resp 17; Pulse Ox 99% ; Pain 0/10; rb1 19:00 BP 136 / 65; Pulse 91; Resp 17; Pulse Ox 99% on R/A; Pain 0/10; rb1 13:26 Body Mass Index 23.35 (80.29 kg, 185.42 cm) rb1 MDM: 14:12 Patient medically screened. jr8 17:58 Data reviewed: vital signs, nurses notes, lab test result(s). Data interpreted: Pulse jr8 oximetry: on room air is 100 %. Interpretation: normal. Counseling: I had a detailed discussion with the patient and/or guardian regarding: the historical points, exam findings, and any diagnostic results supporting the discharge/admit diagnosis, lab results, the need for outpatient follow up, a family practitioner. Physician consultation: Merrill Jacob MD was called at 17:59, was contacted at 17:59, regarding admission, to the telemetry unit. consult, patient's condition. 11/19 14:08 Order name: CBC with Diff; Complete Time: 15:41 [facility] 11/19 14:08 Order name: BMP; Complete Time: 15:41 [facility] 11/19 14:08 Order name: T\T\S [facility] 11/19 15:46 Order name: Bb Add On hb 11/19 16:01 Order name: Packed RBCs (Additional Unit) [facility] 11/19 14:32 Order name: Labs - recollect needed; Complete Time: 15:23 hb Administered Medications: No medications were administered Disposition: 11/19/18 17:59 Hospitalization ordered by Merrill Jacob for Observation. Preliminary diagnosis are Hematuria, Anemia. - Bed requested for Telemetry/MedSurg (observation). - Status is Observation. jb4 - Condition is Stable. - Problem is new. - Symptoms have improved. UTI on Admission? No Addendum: 11/23/2018 20:24 Co-signature as Attending Physician, Pravin Munson MD. r n Signatures: Dispatcher MedPravin Villavicencio MD MD rn Roszak, Josh, PA PA jr8 Liz Paz, RN RN rb1 Mary Anne Galicia RN RN Momo Upton RN RN jb4 Roseanne Clark Gabriella gm Corrections: (The following items were deleted from the chart) 11/19 14:32 14:32 Labs - recollect needed ordered. hb hb 18:33 17:59 Hospitalization Ordered by Merrill Jacob MD for Observation. Preliminary diagnosis eb is Hematuria; Anemia. Bed requested for Telemetry/MedSurg (observation). Status is Observation. Condition is Stable. Problem is new. Symptoms have improved. UTI on Admission? No. jr8 18:42 18:33 11/19/2018 17:59 Hospitalization Ordered by Merrill Jacob MD for Observation. gm Preliminary diagnosis is Hematuria; Anemia. Bed requested for Telemetry/MedSurg (observation). Status is Observation. Condition is Stable. Problem is new. Symptoms have improved. UTI on Admission? No. eb 20:38 18:42 11/19/2018 17:59 Hospitalization Ordered by Merrill Jacob MD for Observation. jb4 Preliminary diagnosis is Hematuria; Anemia. Bed requested for Telemetry/MedSurg (observation). Status is Observation. Condition is Stable. Problem is new. Symptoms have improved. UTI on Admission? No. gm
--- NOTE | 2018-11-19 18:39 | P.HP ---
Certification for Inpatient Patient admitted to: Observation With expected LOS: <2 Midnights Practitioner: I am a practitioner with admitting privileges, knowledge of patient current condition, hospital course, and medical plan of care. Services: Services provided to patient in accordance with Admission requirements found in Title 42 Section 412.3 of the Code of Federal Regulations Patient History Date of Service: 11/19/18 History of Present Illness: This is an 88-year-old male with past medical history of bladder cancer presents to the emergency room with him and she area. Patient has recently been here multiple times for similar symptoms. He has been evaluated multiple times by urology as well. At the last visit, patient was set up with radiation therapy and he has this procedure scheduled tomorrow. He came to the ER today because he felt like his blood levels were low again. Continues to have hematuria. He came to the ER for further evaluation. In the ER, his hemoglobin levels were found to be 7, he continued to have hematuria but he was hemodynamically stable. He was started on blood transfusion, he will be given 2 units. Unfortunately, patient does not have a ride out of the ER today and he does have his radiation therapy scheduled for tomorrow in our outpatient radiation center. At the time of my exam, patient was alert oriented x3, in mild distress, at his baseline. He was otherwise hemodynamically stable Allergies Penicillins Allergy (Verified 10/24/18 19:52) Hives/Rash Home medications list reviewed: Yes Home Medications: Furosemide 1 tab PO DAILY 10/24/18 Gabapentin 1 cap PO TID 10/24/18 Hydrocodone 10/APAP 325 [[place] 10/325*] 2 tab PO Q6H 10/24/18 Levothyroxine [Synthroid*] 0.112 mg PO [id number] 10/24/18 Liothyronine Sodium [Cytomel] 1 tab PO BID 10/24/18 Lisinopril 1 tab PO DAILY 10/24/18 Metoprolol Succinate [Toprol Xl] 1 tab PO DAILY 10/24/18 Tamsulosin [Flomax*] 0.4 mg PO BEDTIME 10/24/18 Triamterene/Hydrochlorothiazid [Triamterene-Hctz 75-50 mg Tab] 1 tab PO DAILY - Past Medical/Surgical History Diabetic: No -: Prostate cancer, radiation therapy -: CIDP-chronic inflammatory polyneuropathy -: appy -: alek -: hernia repair - Family History Father -: Hypertension, Cancer Notes: prostate CA Mother Notes: Rheumatoid arthritis - Social History Alcohol use: Yes CD- Drugs: No Caffeine use: Yes Review of Systems 10-point ROS is otherwise unremarkable Physical Examination - Physical Exam General: Alert, In no apparent distress, Cachectic, Other (Elderly) HEENT: Atraumatic, PERRLA, Mucous membr. moist/pink, EOMI, Sclerae nonicteric Neck: Supple, 2+ carotid pulse no bruit, No LAD, Without JVD or thyroid abnormality Respiratory: Clear to auscultation bilaterally, Normal air movement Cardiovascular: Regular rate/rhythm, Normal S1 S2 Gastrointestinal: Normal bowel sounds, No tenderness Musculoskeletal: No tenderness Integumentary: No rashes Neurological: Normal gait, Normal speech, Normal strength at 5/5 x4 extr, Normal tone, Normal affect Lymphatics: No axilla or inguinal lymphadenopathy Urinary: Swain catheter (With noted gross hematuria), Other - Studies Laboratory Data (last 24 hrs) 11/19/18 14:45: Sodium 143, Potassium 4.2, BUN 46 H, Creatinine 2.32 H, Glucose 99 11/19/18 14:45: WBC 9.4, Hgb 7.0 L*, Hct 20.7 L* D, Plt Count 212 Assessment and Plan - Problems (Diagnosis) (1) Bladder cancer Current Visit: Yes Status: Acute (2) Hematuria Current Visit: No Status: Acute Qualifiers: (3) Neuropathy Current Visit: No Status: Acute (4) History of prostate cancer Current Visit: No Status: Chronic (5) History of radiation therapy Current Visit: No Status: Chronic - Plan Patient will be admitted overnight for observation and blood transfusion. He will be discharged in the morning to follow up with his radiation therapy appointment as scheduled. We have had multiple discussions regarding hospice. At the last visit, a [facility] hospice wrap was contacted and she was going to get in touch with the patient to discuss further regarding hospice. Will continue discussions with patient at this time. Disposition: Anticipate discharge in the morning, patient remained stable for his scheduled outpatient radiation therapy. - Advance Directives Does patient have a Living Will: Yes Does patient have a Durable POA for Healthcare: Yes
[2018-11-19] MEDS ORDERED: ONDANSETRON 4 MG/2 ML VIAL IV PRN (20:27)
[2018-11-19] MEDS: NA CHLORIDE 0.9% 1,000 ML IV SCH (21:45)
[2018-11-19 23:44] VITALS: BMI 20.8
[2018-11-20 04:37] LABS: Absolute Lymphocytes (CBC) 1.4 K/uL (0.7-4.9); Basophils % 0.8 % (0-1.3); Hematocrit 25.4 % (39.6-49.0); Lymphocytes % 14.4 % (15.3-44.8); MPV 9.1 fL (7.6-11.3); RBC Red Blood Cell Count 2.72 M/uL (4.33-5.43)
[2018-11-20 05:01] LABS: Albumin 2.8 g/dL (3.4-5.0); Bilirubin Total 0.8 mg/dL (0.2-1.0); Potassium 4.7 mmol/L (3.5-5.1); Protein, Total 6.2 g/dL (6.4-8.2)
[2018-11-20] MEDS ORDERED: HYDROCODONE/APAP 10/325 TAB PO PRN (05:14)
[2018-11-20 05:48] VITALS: O2SAT 100
[2018-11-20] MEDS: NA CHLORIDE 0.9% 1,000 ML IV SCH (06:27)
[2018-11-20] MEDS ORDERED: INFLUENZA VACCINE (for 3y+) 0.5 ML DOSE IMVAC ONE (08:00)
--- NOTE | 2018-11-20 09:45 | EKG ---
Test Date: 2018-11-19 Test Time: 19:23:53 Translator Interpreter: HERMINIO MEASUREMENT RESULTS: Intervals: Rate: 82 RI: QRSD: 130 QT: 414 QTc: 483 [place]: P: RI: QRS: -57 T: 25 INTERPRETIVE STATEMENTS: Atrial fibrillation with premature ventricular or aberrantly conducted complexes Right bundle branch block Left axis Abnormal ECG Compared to ECG 10/27/2018 02:26:24 Right bundle-branch block still present Electronically Signed On 11-20-18 09:45:02 CDT by Joni Tian
[2018-11-20 12:47] VITALS: BP 138/55; TEMP 97.9
[2018-11-20] MEDS ORDERED: JUVEN PACKET PO SCH (21:00)
--- NOTE | 2018-11-24 16:48 | P.SSS ---
Patient History Date of Service: 11/20/18 History of Present Illness: This is an 88-year-old male with past medical history of bladder cancer presents to the emergency room with him and she area. Patient has recently been here multiple times for similar symptoms. He has been evaluated multiple times by urology as well. At the last visit, patient was set up with radiation therapy and he has this procedure scheduled tomorrow. He came to the ER today because he felt like his blood levels were low again. Continues to have hematuria. He came to the ER for further evaluation. In the ER, his hemoglobin levels were found to be 7, he continued to have hematuria but he was hemodynamically stable. He was started on blood transfusion, he will be given 2 units. Unfortunately, patient does not have a ride out of the ER today and he does have his radiation therapy scheduled for tomorrow in our outpatient radiation center. At the time of my exam, patient was alert oriented x3, in mild distress, at his baseline. He was otherwise hemodynamically stable Allergies Penicillins Allergy (Verified 10/24/18 19:52) Hives/Rash Home medications list reviewed: Yes Home Medications: Furosemide 1 tab PO DAILY 10/24/18 Gabapentin 1 cap PO TID 10/24/18 Hydrocodone 10/APAP 325 [[place] 10/325*] 1 - 2 tab PO Q6H 10/24/18 Levothyroxine [Synthroid*] 0.112 mg PO [id number] 10/24/18 Lisinopril 1 tab PO DAILY 10/24/18 Metoprolol Succinate [Toprol Xl] 1 tab PO DAILY 10/24/18 Tamsulosin [Flomax*] 0.8 mg PO BEDTIME 10/24/18 Gabapentin [Neurontin] 600 mg PO BEDTIME 11/20/18 - Past Medical/Surgical History Has patient received pneumonia vaccine in the past: Yes Diabetic: No -: Prostate cancer, radiation therapy -: CIDP-chronic inflammatory polyneuropathy -: appy -: alek -: hernia repair - Family History Father -: Hypertension, Cancer Notes: prostate CA Mother Notes: Rheumatoid arthritis - Social History Smoking Status: Former smoker Alcohol use: Yes CD- Drugs: No Caffeine use: Yes Place of Residence: Home Review of Systems 10-point ROS is otherwise unremarkable Physical Examination - Vital Signs Temperature: 97.9 F Blood Pressure: 138/55 Pulse: 70 Respirations: 18 Pulse Ox (%): 100 - Physical Exam General: Alert, In no apparent distress, Cachectic HEENT: Atraumatic, PERRLA, Mucous membr. moist/pink, EOMI, Sclerae nonicteric Neck: Supple, 2+ carotid pulse no bruit, No LAD, Without JVD or thyroid abnormality Respiratory: Clear to auscultation bilaterally, Normal air movement Cardiovascular: Regular rate/rhythm, Normal S1 S2 Gastrointestinal: Normal bowel sounds, No tenderness Musculoskeletal: No tenderness Integumentary: No rashes Neurological: Normal gait, Normal speech, Normal strength at 5/5 x4 extr, Normal tone, Normal affect Lymphatics: No axilla or inguinal lymphadenopathy - Diagnosis (Problem(s)) (1) Bladder cancer Status: Acute (2) Hematuria Status: Acute Qualifiers: (3) Neuropathy Status: Acute (4) History of prostate cancer Status: Chronic (5) History of radiation therapy Status: Chronic Treatment Summary: Patient was be admitted overnight for observation and blood transfusion. He was discharged in the morning to follow up with his radiation therapy appointment as scheduled. We have had multiple discussions regarding hospice. At the last visit, a [facility] hospice wrap was contacted and she was going to get in touch with the patient to discuss further regarding hospice. Patient not interested in Hospice at this time. Overall, poor prognosis. - Disposition Discharge Date: 11/20/18 Disposition: ROUTINE DISCHARGE Condition: FAIR Patient Discharge Instructions: Please make sure to keep your radiation therapy appointment today. Diet: Regular Activity: Ad leydi Time Spent Managing Pts Care (In Minutes): 45
== END 2018-11-20 15:42 | disposition home or self-care (01) ==
LOC: ER 13:20 → ERHOLD 18:32 → 4TH 19:54
PROVIDERS: ADMIT Family Medicine; ATTEND Family Medicine
PROC: 30233N1 Transfusion of Nonautologous Red Blood Cells into Peripheral Vein, Percutaneous Approach (ICD-10-PCS; principal; 2018-11-19)
DX: D64.9 Anemia, unspecified (principal); R31.9 Hematuria, unspecified; C67.9 Malignant neoplasm of bladder, unspecified; G62.9 Polyneuropathy, unspecified; Z85.46 Personal history of malignant neoplasm of prostate; Z88.0 Allergy status to penicillin; Z92.3 Personal history of irradiation
CPT/HCPCS: 93005; 85025 ×2; 80048; 36415; 86900; 86850; 86901; 80053; 94760 ×2; 99285; 36430; P9016 ×2; J7030 ×3; G0378 ×3